=== PATIENT | male | born 1955 | race African-American/Black ===

== ENCOUNTER 2016-12-22 16:13 | Emergency (ER) | payer MEDICARE, OTHER ==
[~2016-12-22] VITALS: Ht 193 cm; Wt 77.1 kg
[~2016-12-22 16:13] MED LIST: ASPI-482 PO; LOSA25TA4 PO; SIMV20TA PO; TRAM50TA PO
[2016-12-22] MEDS ORDERED: IV NORMAL SALINE 1000ML BAG 1,000 ML IV SCH (16:49)
--- NOTE | 2016-12-22 17:13 | RAD ---
PROCEDURE CT head without contrast 12/22/2016. HISTORY Headache for 3 days. TECHNIQUE Noncontrast images were performed. Exposure: One or more of the following individualized dose reduction techniques were utilized for this exam: 1. Automated exposure control. 2. Adjustment of the mA and/or kV according to patient size. 3. Use of iterative reconstruction technique. COMPARISON 06/25/2016. FINDINGS There is no apparent intracranial mass, hemorrhage or abnormal extra-axial fluid collection. No new area of abnormal density is seen in the brain. The ventricles and basilar cisterns are normally positioned. The sinuses and mastoid air cells are clear. IMPRESSION No acute intracranial abnormality or change from the prior study. Electronically signed by: Chemo Duarte (Dec 22, 2016 17:12:53)
[2016-12-22 17:15] VITALS: BP 113/72
--- NOTE | 2016-12-22 17:19 | ED.ADGEN ---
Past Medical History Past Medical History: GERD, High Cholesterol, Hypertension, Hepatitis, Other Additional Past Medical Histor: chronic knee pain, chronic back pain,HEP C Past Surgical History: Other Additional Past Surgical Histo: HERNIA REPAIR, HEAD INJURY UNKNOWN TYPE OR REPAIR Alcohol Use: Occasionally Drug Use: Marijuana Adult General Chief Complaint Chief Complaint: SORE THROAT HPI HPI Patient is a 61 year old male presents emergency department complaining of a four-day history of headache. He states this headache is unlike other studies had in the past. He states that his been refractory to ibuprofen. Patient also states that he has a sore throat. He has had upper respiratory infection type symptoms for the last 1 week. Review of Systems Review of Systems Constitutional: Denies fever or chills. [] Eyes: Denies change in visual acuity. [] HENT: Denies nasal congestion or sore throat. [] Respiratory: Denies cough or shortness of breath. [] Cardiovascular: Denies chest pain or edema. [] GI: Denies abdominal pain, nausea, vomiting, bloody stools or diarrhea. [] : Denies dysuria. [] Musculoskeletal: Denies back pain or joint pain. [] Integument: Denies rash. [] Neurologic: Denies headache, focal weakness or sensory changes. [] Endocrine: Denies polyuria or polydipsia. [] Lymphatic: Denies swollen glands. [] Psychiatric: Denies depression or anxiety. [] Current Medications Current Medications Current Medications Medications (Trade) Dose Ordered Sig/Lavon Start Time Stop Time Status Last Admin Dose Admin Diphenhydramine HCl (Benadryl) 25 mg 1X ONCE 12/22/16 17:30 12/22/16 17:31 DC 12/22/16 17:05 25 MG Ketorolac Tromethamine (Toradol) 15 mg 1X ONCE 12/22/16 17:30 12/22/16 17:31 DC 12/22/16 17:03 15 MG Prochlorperazine Edisylate (Compazine) 10 mg 1X ONCE 12/22/16 17:30 12/22/16 17:31 DC 12/22/16 17:05 10 MG Sodium Chloride (Iv Sodium Chloride 0.9% 1000ml Bag) 1,000 ml @ 1,000 mls/hr Q1H 12/22/16 16:49 12/22/16 17:48 12/22/16 16:59 1,000 MLS/HR Allergies Allergies Allergies Coded Allergies Type Severity Reaction Last Updated Verified Fish Containing Products Allergy Intermediate 08/11/14 Yes iodine Allergy Intermediate 08/11/14 Yes Physical Exam Physical Exam Constitutional: Well developed, well nourished, no acute distress, non-toxic appearance. [] HENT: Normocephalic, atraumatic, bilateral external ears normal, oropharynx moist, bilateral tonsils are erythematous but no oral exudates, nose normal. [] Eyes: PERRLA, EOMI, conjunctiva normal, no discharge. [] Neck: Normal range of motion, left posterior tender lymphadenopathy, supple, no stridor. [] Cardiovascular:Heart rate regular rhythm, no murmur [] Lungs & Thorax: Bilateral breath sounds clear to auscultation [] Abdomen: Bowel sounds normal, soft, no tenderness, no masses, no pulsatile masses. [] Skin: Warm, dry, no erythema, no rash. [] Back: No tenderness, no CVA tenderness. [] Extremities: No tenderness, no cyanosis, no clubbing, ROM intact, no edema. [] Neurologic: Alert and oriented X 3, normal motor function, normal sensory function, no focal deficits noted. [] Psychologic: Affect normal, judgement normal, mood normal. [] Current Patient Data Vital Signs Vital Signs Date Time Temp Pulse Resp B/P Pulse Ox O2 Delivery O2 Flow Rate FiO2 12/22/16 17:15 74 20 113/72 99 Room Air 12/22/16 16:20 98.1 98.1 Lab Values Laboratory Tests Test 12/22/16 16:53 Influenza Type A Antigen Negative (NEGATIVE) Influenza Type B Antigen Negative (NEGATIVE) EKG EKG [] Radiology/Procedures Radiology/Procedures PROCEDURE CT head without contrast 12/22/2016. HISTORY Headache for 3 days. TECHNIQUE Noncontrast images were performed. Exposure: One or more of the following individualized dose reduction techniques were utilized for this exam: 1. Automated exposure control. 2. Adjustment of the mA and/or kV according to patient size. 3. Use of iterative reconstruction technique. COMPARISON 06/25/2016. FINDINGS There is no apparent intracranial mass, hemorrhage or abnormal extra-axial fluid collection. No new area of abnormal density is seen in the brain. The ventricles and basilar cisterns are normally positioned. The sinuses and mastoid air cells are clear. IMPRESSION No acute intracranial abnormality or change from the prior study. Electronically signed by: Von Talley (Dec 22, 2016 17:12:53) DICTATED and SIGNED BY: VON TALLEY Jr, MD DATE: 12/22/16 1718 CC: AJ MERA MD; RYANN KEYES MD ~ [] Course & Med Decision Making Course & Med Decision Making Pertinent Labs and Imaging studies reviewed. (See chart for details) Reassuring workup. Patient reports that his headache has completely resolved with some IV fluids, Compazine, and Benadryl. He is ready for discharge. He is being sent home with supportive care as well as follow-up and return precautions. Headache [] Dragon Disclaimer Dragon Disclaimer This electronic medical record was generated, in whole or in part, using a voice recognition dictation system. AJ MERA MD Dec 22, 2016 17:19
[2016-12-22 17:25] LABS: OBC FLU VALID
[2016-12-22] MEDS ORDERED: KETOROLAC 15 MG/ML VIAL. IV ONE (17:30)
[2016-12-22] MEDS ORDERED: DIPHENHYDRAMINE 50 MG/ML VIAL IVP ONE (17:30)
[2016-12-22] MEDS ORDERED: PROCHLORPERAZINE 10 MG/2 ML VIAL. IV ONE (17:30)
== END 2016-12-22 17:45 | disposition home or self-care (01) ==
LOC: ER 16:13
DX: R51 Headache (principal); J02.9 Acute pharyngitis, unspecified; E78.00 Pure hypercholesterolemia, unspecified; I10 Essential (primary) hypertension; K21.9 Gastro-esophageal reflux disease without esophagitis; G89.29 Other chronic pain; F17.210 Nicotine dependence, cigarettes, uncomplicated; Z86.19 Personal history of other infectious and parasitic diseases; Z91.041 Radiographic dye allergy status; Z91.013 Allergy to seafood
CPT/HCPCS: 70450; 87804; 96361; 96374; 96375; 99285; J0780; J1200; J1885; J7030

== ENCOUNTER 2017-06-05 13:34 | Emergency (ER) | payer OTHER ==
[~2017-06-05] VITALS: Ht 190.5 cm; Wt 80.7 kg
[2017-06-05 14:03] VITALS: BP 132/84
[2017-06-05] MEDS ORDERED: CYCL10TA2 PO (14:37)
[2017-06-05] MEDS ORDERED: PRED20TA PO (14:38)
--- NOTE | 2017-06-05 14:38 | PHYS DOC ---
Past Medical History Past Medical History: GERD, High Cholesterol, Hypertension, Hepatitis, Other Additional Past Medical Histor: chronic knee pain, chronic back pain,HEP C Past Surgical History: Other Additional Past Surgical Histo: HERNIA REPAIR, HEAD INJURY UNKNOWN TYPE OR REPAIR Alcohol Use: Occasionally Drug Use: Marijuana Adult General Chief Complaint Chief Complaint: LOWER BACK PAIN OR INJURY [facility] HPI Patient is a 61 year old male presents to the emergency department by himself stating that he has chronic back pain. He states he is having low back pain on the left side today with some radiation down into his right leg. Patient states that this started after he woke up from a nap. He states he did not take anything for pain and discomfort. He does state however she's been taken ibuprofen for the pain and discomfort at home on a daily basis. Patient states that his primary care physician Ana Keyes had been providing him with tramadol for the pain and discomfort. Patient states that he hasn't been taking this for quite some time. Patient states that he had an appointment set up with a specialist however he forgot about the appointment and did not attend. He states that he does have an appointment within the next 2 weeks. Patient denies any recent injury or trauma. Review of Systems Review of Systems Constitutional: Denies fever or chills [] Eyes: Denies change in visual acuity, redness, or eye pain [] HENT: Denies nasal congestion or sore throat [] Respiratory: Denies cough or shortness of breath [] Cardiovascular: No additional information not addressed in HPI [] GI: Denies abdominal pain, nausea, vomiting, bloody stools or diarrhea [] : Denies dysuria or hematuria [] Musculoskeletal: Right lower back pain, denies joint pain Integument: Denies rash or skin lesions [] Neurologic: Denies headache, focal weakness or sensory changes [] Endocrine: Denies polyuria or polydipsia [] Allergies Allergies Allergies Coded Allergies Type Severity Reaction Last Updated Verified Fish Containing Products Allergy Intermediate 08/11/14 Yes iodine Allergy Intermediate 08/11/14 Yes Physical Exam Physical Exam Constitutional: Well developed, well nourished, no acute distress, non-toxic appearance. [] HENT: Normocephalic, atraumatic, bilateral external ears normal, oropharynx moist, no oral exudates, nose normal. [] Eyes: PERRLA, EOMI, conjunctiva normal, no discharge. [] Neck: Normal range of motion, no tenderness, supple, no stridor. [] Cardiovascular:Heart rate regular rhythm, no murmur [] Lungs & Thorax: Bilateral breath sounds clear to auscultation [] Skin: Warm, dry, no erythema, no rash. [] Back: No tenderness thoracic spine, lumbar spine tenderness, no step-offs no deformities and no crepitus noted. Patient did have tenderness on the right lower back around to the right hip along the sciatic area. Peripheral pulses are 2+ cap refill brisk less than 2 seconds. Patient is able to ambulate without difficulty. Extremities: No tenderness, no cyanosis, no clubbing, ROM intact, no edema. [] Neurologic: Alert and oriented X 3, normal motor function, normal sensory function, no focal deficits noted. [] Psychologic: Affect normal, judgement normal, mood normal. [] Current Patient Data Vital Signs Vital Signs Date Time Temp Pulse Resp B/P (MAP) Pulse Ox O2 Delivery O2 Flow Rate FiO2 06/05/17 14:03 98.2 74 16 100 Room Air 98.2 EKG EKG [] Radiology/Procedures Radiology/Procedures [] Course & Med Decision Making Course & Med Decision Making Patient was instructed Flexeril will cause drowsiness do not take any be alert and oriented. Pertinent Labs and Imaging studies reviewed. (See chart for details) Patient is driven himself here to the emergency department and is complaining of chronic back pain. He'll be provided with a Toradol injection. He'll be discharged home with Flexeril and prednisone. Patient was recommended to follow- up with his primary care physician for further pain management work contact the specialist in which his supposed to be seen in 2 weeks. Patient will be discharged home in stable condition signs and symptoms to return back to emergency department as been provided. All [] questions and concerns been answered at the bedside. Patient had requested tramadol however Catrix to patient he has not been on tramadol for over a year. Also spoke with patient in regards to narcotic restrictions on pain medications. Patient stated understanding. Dragon Disclaimer Dragon Disclaimer This electronic medical record was generated, in whole or in part, using a voice recognition dictation system. Departure Departure Impression: Primary Impression: Chronic back pain Disposition: HOME, SELF-CARE Condition: STABLE Referrals: RYANN KEYES MD (PCP) Patient Instructions: Chronic Back Pain Additional Instructions: Activity as tolerated. Ibuprofen may be taken at home 800 mg every 8 hours with food stop taking if he developed upset stomach. Medications as prescribed. Flexeril will cause drowsiness do not take any be alert and oriented. Ice packs to the areas of discomfort on 20 minutes off 20 minutes several times a day. Follow-up through primary care physician or your specialist for further pain management. Return back to emergency prior signs symptoms of become worse. Scripts Prednisone (PREDNISONE) 20 Mg Tablet 40 MG PO DAILY for 7 Days, #14 TAB Prov: CRYS GODOY APRN 06/05/17 Cyclobenzaprine Hcl (CYCLOBENZAPRINE HCL) 10 Mg Tablet 10 MG PO TID, #30 TAB Prov: CRYS GODOY APRN 06/05/17 CRYS GODOY APRN Jun 05, 2017 14:38
[2017-06-05] MEDS ORDERED: KETOROLAC TROMETHAMINE 60 MG/2 ML INJ. IM ONE (14:45)
== END 2017-06-05 14:50 | disposition home or self-care (01) ==
LOC: ER 13:34
DX: M54.5 Low back pain (principal); G89.29 Other chronic pain; K21.9 Gastro-esophageal reflux disease without esophagitis; I10 Essential (primary) hypertension; E78.00 Pure hypercholesterolemia, unspecified; Z86.19 Personal history of other infectious and parasitic diseases; Z91.041 Radiographic dye allergy status; Z91.013 Allergy to seafood
CPT/HCPCS: 96372; 99283; J1885

== ENCOUNTER 2018-03-27 15:31 | Emergency (ER) | payer OTHER | END 2018-03-27 16:10 | disposition home or self-care (01) | LOC: ER 16:10 | DX: K04.7 Periapical abscess without sinus (principal); E78.00 Pure hypercholesterolemia, unspecified; I10 Essential (primary) hypertension; K21.9 Gastro-esophageal reflux disease without esophagitis; G89.29 Other chronic pain; F12.10 Cannabis abuse, uncomplicated; Z91.041 Radiographic dye allergy status; Z91.013 Allergy to seafood | CPT/HCPCS: 99283 ==

== ENCOUNTER 2018-08-02 08:04 | Emergency (ER) | payer MEDICARE, OTHER ==
[~2018-08-02] VITALS: Ht 189.2 cm; Wt 79.8 kg
[~2018-08-02 08:04] MED LIST changes: +AMOX500T PO; +CYCL10TA2 PO; +HYDR-971 PO; -LOSA25TA4 PO; +LOSA25TA5 PO; +PRED20TA PO
[2018-08-02 08:05] VITALS: BP 118/76
[2018-08-02] MEDS ORDERED: MORPHINE SULFATE 4 MG/ML VIAL. IV/SQ PRN (08:30)
[2018-08-02] MEDS ORDERED: MORPHINE SULFATE 4 MG/ML VIAL. ONE (08:35)
[2018-08-02] MEDS ORDERED: ASPIRIN CHEWABLE 81 MG TABLET. PO ONE (08:45)
[2018-08-02] MEDS ORDERED: LIDO:MAALOX 1:1 20 ML SINGLE DOSE. SWSW ONE (08:45)
--- NOTE | 2018-08-02 08:48 | PHYS DOC ---
Past Medical History Past Medical History: Constipation, GERD, High Cholesterol, Hypertension, Hepatitis, Other Additional Past Medical Histor: chronic knee pain, chronic back pain,HEP C Past Surgical History: Other Additional Past Surgical Histo: HERNIA REPAIR, HEAD INJURY UNKNOWN TYPE OR REPAIR Smoking: Cigarettes, 1 Pack Per Day Alcohol Use: Occasionally Drug Use: Marijuana Adult General Chief Complaint Chief Complaint: CHEST PAIN HPI HPI Patient is a pleasant 62-year-old male who presents to the emergency department for evaluation. He states that this morning he was doing laundry, getting ready to go to shinto, when he developed a sudden onset of sharp chest pain, radiating both vertically up his chest, and then across his chest. He states that the sharp pain has subsided and he has remaining some achy chest soreness. He has not had any shortness of breath, and denies any pleuritic pain, dyspnea on exertion, diaphoresis, nausea, vomiting. He has not had any prior cardiac history. Exertion did not seem to worsen his chest discomfort. There are no alleviating factors to his symptoms. He has not had any abdominal pain, or changes in bowel habits. The patient states he has had similar episodes of pain in the past, and was seen in this hospital several years ago, and had a cardiac evaluation which she states was normal. The patient's HEART score is a 2. Review of Systems Review of Systems Constitutional: Denies fever or chills [] Eyes: Denies change in visual acuity, redness, or eye pain [] HENT: Denies nasal congestion or sore throat [] Respiratory: Denies cough or shortness of breath [] Cardiovascular: No additional information not addressed in HPI [] GI: Denies abdominal pain, nausea, vomiting, bloody stools or diarrhea [] : Denies dysuria or hematuria [] Musculoskeletal: Denies back pain or joint pain [] Integument: Denies rash or skin lesions [] Neurologic: Denies headache, focal weakness or sensory changes [] Endocrine: Denies polyuria or polydipsia [] All other systems were reviewed and found to be within normal limits, except as documented in this note. Current Medications Current Medications Current Medications Medications (Trade) Dose Ordered Sig/Lavon Start Time Stop Time Status Last Admin Dose Admin Aspirin (Children'S Aspirin) 324 mg 1X ONCE 08/02/18 08:45 08/02/18 08:46 DC 08/02/18 08:38 324 MG Morphine Sulfate (Morphine Sulfate) 4 mg STK-MED ONCE 08/02/18 08:35 08/02/18 08:36 DC Multi-Ingredient Mouthwash/Gargle (Gi Cocktail) 20 ml 1X ONCE 08/02/18 08:45 08/02/18 08:47 DC 08/02/18 08:56 20 ML Allergies Allergies Allergies Coded Allergies Type Severity Reaction Last Updated Verified Fish Containing Products Allergy Intermediate 08/11/14 Yes iodine Allergy Intermediate 08/11/14 Yes Physical Exam Physical Exam PHYSICAL EXAM: CONSTITUTIONAL: Well developed, well nourished HEAD: normocephalic, atraumatic EENT: PERRL, EOMI. Conjunctivae normal color, sclerae non-icteric; moist mucous membranes. NECK: Supple, non-tender; no meningismus. LUNGS: Lungs CTA, breathing even and unlabored. Normal air movement. HEART: Regular rate and rhythm, no murmur CHEST: No deformity; non-tender ABDOMEN: The abdomen is soft, and non-tender, no masses or bruits. EXTREM: Normal ROM; no deformity, no calf tenderness. Normal pulses palpable in all extremities. There is no pedal edema. SKIN: No rash; no diaphoresis NEURO: Alert; normal speech and cognition; CN's grossly intact; strength grossly intact without focal deficit. BACK: No CVA TTP. Current Patient Data Vital Signs Vital Signs Date Time Temp Pulse Resp B/P (MAP) Pulse Ox O2 Delivery O2 Flow Rate FiO2 08/02/18 08:39 18 08/02/18 08:05 97.8 61 118/76 (90) 100 Room Air 97.8 Lab Values Laboratory Tests Test 08/02/18 08:30 White Blood Count 3.6 x10^3/uL (4.0-11.0) L Red Blood Count 4.36 x10^6/uL (4.30-5.70) Hemoglobin 13.3 g/dL (13.0-17.5) Hematocrit 38.0 % (39.0-53.0) L Mean Corpuscular Volume 87 fL (79-100) Mean Corpuscular Hemoglobin 31 pg (25-35) Mean Corpuscular Hemoglobin Concent 35 g/dL (31-37) Red Cell Distribution Width 15.6 % (11.5-14.5) H Platelet Count 208 x10^3/uL (140-400) Neutrophils (%) (Auto) 49 % (31-73) Lymphocytes (%) (Auto) 41 % (24-48) Monocytes (%) (Auto) 9 % (0-9) Eosinophils (%) (Auto) 1 % (0-3) Basophils (%) (Auto) 1 % (0-3) Neutrophils # (Auto) 1.8 x10^3uL (1.8-7.7) Lymphocytes # (Auto) 1.5 x10^3/uL (1.0-4.8) Monocytes # (Auto) 0.3 x10^3/uL (0.0-1.1) Eosinophils # (Auto) 0.0 x10^3/uL (0.0-0.7) Basophils # (Auto) 0.0 x10^3/uL (0.0-0.2) Sodium Level 143 mmol/L (136-145) Potassium Level 4.5 mmol/L (3.5-5.1) Chloride Level 106 mmol/L (98-107) Carbon Dioxide Level 29 mmol/L (21-32) Anion Gap 8 (6-14) Blood Urea Nitrogen 19 mg/dL (8-26) Creatinine 1.3 mg/dL (0.7-1.3) Estimated GFR (Cockcroft-Gault) 67.7 BUN/Creatinine Ratio 15 (6-20) Glucose Level 87 mg/dL (70-99) Calcium Level 9.2 mg/dL (8.5-10.1) Magnesium Level 1.9 mg/dL (1.8-2.4) Total Bilirubin 0.3 mg/dL (0.2-1.0) Aspartate Amino Transferase (AST) 23 U/L (15-37) Alanine Aminotransferase (ALT) 21 U/L (16-63) Alkaline Phosphatase 56 U/L (46-116) Creatine Kinase 286 U/L (39-308) Creatine Kinase MB (Mass) 2.1 ng/mL (0.0-3.6) Creatine Kinase MB Relative Index 0.7 % (0-4) Troponin I Quantitative < 0.017 ng/mL (0.000-0.055) Total Protein 7.7 g/dL (6.4-8.2) Albumin 3.6 g/dL (3.4-5.0) Albumin/Globulin Ratio 0.9 (1.0-1.7) L Lipase 178 U/L (73-393) Laboratory Tests 08/02/18 08:30 Laboratory Tests 08/02/18 08:30 EKG EKG [Normal sinus rhythm at a rate of 61 bpm normal axis, normal intervals. There are no acute ischemic ST/T changes.] Radiology/Procedures Radiology/Procedures [PROCEDURE: CHEST PA & LATERAL CHEST PA LATERAL History: patient having chest pain, hx of hyperlipidemia, heavy smoker, hx of emphysema. Comparison: Chest radiograph dated 06/25/2016. Findings: The posterior costophrenic angles are excluded from the lateral [id number] due to lung hyperexpansion. Hyperexpanded lung volume. No focal consolidation. Nodular opacities in the bilateral midlung zones likely related to nipple shadows. Unchanged pulmonary vasculature. No pleural effusion or pneumothorax. The cardiomediastinal silhouette is normal. The great vessels of the thorax are normal. No acute osseous abnormality. IMPRESSION: 1. No focal consolidation. 2. Nodular opacities in the bilateral midlung zones likely related to nipple shadows. ] Course & Med Decision Making Course & Med Decision Making Pertinent Labs and Imaging studies reviewed. (See chart for details) [9:35 AM: The patient's condition remained stable. His pain resolved at this time.I had an extensive discussion with the patient about the limitations of ER cardiac evaluation in definitively ruling out acute coronary syndrome. We discussed limitation of the ER evaluation and a singe ED troponin in r/o AMI, and the risks involved in missed diagnosis of acute coronary syndrome including or permanent debility. I recommended overnight observation for further formal cardiac evaluation to rule out acute coronary syndrome. After expressing understanding of the limitations of ER cardiac evaluation, as well as the risks of missed diagnosis, the patient declined further cardiac evaluation at this time. The patient was mentally competent, and given opportunity to ask questions about the diagnosis and recommended plan of care. I stressed the importance of outpatient follow-up, and returning to the emergency department for new or worsening symptoms, or if the patient is agreeable to undergo further cardiac evaluation. ] Dragon Disclaimer Dragon Disclaimer This electronic medical record was generated, in whole or in part, using a voice recognition dictation system. Departure Departure Impression: Primary Impression: Chest pain Disposition: HOME, SELF-CARE Condition: STABLE Referrals: RYANN KEYES MD (PCP) ALEXANDRIA METZGER MD Patient Instructions: Chest Pain (Nonspecific) Additional Instructions: Begin taking 81 mg of aspirin once daily, Until instructed to stop by physician. AJ GAUTHIER MD Aug 02, 2018 08:48
[2018-08-02 08:55] LABS: BASO % 1 % (0-3); EOS % 1 % (0-3); HEMOGLOBIN 13.3 g/dL (13.0-17.5); LYMPH # 1.5 x10^3/uL (1.0-4.8); LYMPH % 41 % (24-48); MEAN CORPUSCULAR HEMOGLOBIN 31 pg (25-35); MEAN CORPUSCULAR HGB CONC 35 g/dL (31-37); MEAN CORPUSCULAR VOLUME 87 fL (79-100); MONO # 0.3 x10^3/uL (0.0-1.1); MONO % 9 % (0-9); NEUT # 1.8 x10^3uL (1.8-7.7); NEUT % 49 % (31-73); PLATELET COUNT 208 x10^3/uL (140-400); RED BLOOD COUNT 4.36 x10^6/uL (4.30-5.70); RED CELL DISTRIBUTION WIDTH 15.6 % (11.5-14.5); WHITE BLOOD COUNT 3.6 x10^3/uL (4.0-11.0)
[2018-08-02 09:00] LABS: CALCIUM 9.2 mg/dL (8.5-10.1); CREATININE 1.3 mg/dL (0.7-1.3); GFR 67.7; POTASSIUM 4.5 mmol/L (3.5-5.1)
[2018-08-02 09:09] LABS: ALBUMIN 3.6 g/dL (3.4-5.0); ALBUMIN/GLOBULIN RATIO 0.9 (1.0-1.7); MAGNESIUM 1.9 mg/dL (1.8-2.4); TOTAL BILIRUBIN 0.3 mg/dL (0.2-1.0); TOTAL PROTEIN 7.7 g/dL (6.4-8.2)
--- NOTE | 2018-08-02 09:10 | RAD ---
CHEST PA LATERAL History: patient having chest pain, hx of hyperlipidemia, heavy smoker, hx of emphysema. Comparison: Chest radiograph dated 06/25/2016. Findings: The posterior costophrenic angles are excluded from the lateral [id number] due to lung hyperexpansion. Hyperexpanded lung volume. No focal consolidation. Nodular opacities in the bilateral midlung zones likely related to nipple shadows. Unchanged pulmonary vasculature. No pleural effusion or pneumothorax. The cardiomediastinal silhouette is normal. The great vessels of the thorax are normal. No acute osseous abnormality. IMPRESSION: 1. No focal consolidation. 2. Nodular opacities in the bilateral midlung zones likely related to nipple shadows. Electronically signed by: Sam Roberto MD (08/02/2018 9:07 AM) [facility]
--- NOTE | 2018-08-02 10:03 | EKG ---
[facility] [address] [place] [address] Test Date: 2018-08-02 Test Time: 08:12:07 Pat Name: DEBRA VANCE Department: Room: Gender: [employer]: LADY : 1955 Requested By: AJ GAUTHIER Order Number: [id number] Reading MD: Narciso Stuart MD Measurements Intervals [place] Rate: 61 P: 68 NM: 206 QRS: 55 QRSD: 80 T: 52 QT: 386 QTc: 394 Interpretive Statements SINUS RHYTHM Electronically Signed On 08-03-2018 12:22:19 CDT by Narciso Stuart MD
== END 2018-08-02 09:58 | disposition home or self-care (01) ==
LOC: ER 08:04
DX: R07.89 Other chest pain (principal); E78.00 Pure hypercholesterolemia, unspecified; K21.9 Gastro-esophageal reflux disease without esophagitis; I10 Essential (primary) hypertension; G89.29 Other chronic pain; Z98.890 Other specified postprocedural states; F17.210 Nicotine dependence, cigarettes, uncomplicated; Z86.19 Personal history of other infectious and parasitic diseases; Z91.041 Radiographic dye allergy status; Z91.013 Allergy to seafood
CPT/HCPCS: 36415; 71046; 80053; 82553; 83690; 83735; 84484; 85025; 93005; 96374; 99285; J2270

== ENCOUNTER 2018-09-25 19:18 | Emergency (ER) | payer MEDICARE, OTHER ==
[~2018-09-25] VITALS: Ht 182.9 cm; Wt 79.8 kg
[~2018-09-25 19:18] MED LIST changes: +HYDR-3164 PO; -HYDR-971 PO; -LOSA25TA5 PO; +LOSA25TA54 PO; +OMEP20CA9 PO; +POLY17PO29 PO; +SENN-80 PO
[2018-09-25] MEDS ORDERED: IV NORMAL SALINE 1000ML BAG 1,000 ML IV ONE (19:30)
[2018-09-25] MEDS ORDERED: PROCHLORPERAZINE 10 MG/2 ML VIAL. IV ONE (19:30)
[2018-09-25 20:00] VITALS: BP 109/67
--- NOTE | 2018-09-25 20:01 | PHYS DOC ---
Past Medical History Past Medical History: Constipation, GERD, High Cholesterol, Hypertension, Hepatitis, Other Additional Past Medical Histor: chronic knee pain, chronic back pain,HEP C Past Surgical History: Other Additional Past Surgical Histo: HERNIA REPAIR, HEAD INJURY UNKNOWN TYPE OR REPAIR Alcohol Use: Occasionally Drug Use: Marijuana Adult General Chief Complaint Chief Complaint: NAUSEA/VOMITING/DIARRHA HPI HPI Patient is a 62 year old male who presents with GI upset. Patient states he accidentally ate some sausage this morning which had been sitting out all night. He suspects that the sausage had become rotten. After eating this, he began to have some abdominal cramping. He subsequently had a couple episodes of nonbloody emesis and some diarrhea over the course the day. Patient states he smoked some marijuana to try to make himself feel better but this did not help. He presents to the ER primarily complaining of nausea. His last episode of emesis was several hours earlier. He had a total of 2 or 3 episodes of diarrhea over the course of the day. No acute pain area no severe abdominal pain. No fever or chills. Patient has no chronic health conditions. Review of Systems Review of Systems Constitutional: Denies fever Eyes: Denies change in visual acuity HENT: Denies nasal congestion Respiratory: Denies cough or shortness of breath Cardiovascular: No additional information not addressed in HPI GI: Denies abdominal pain : Denies dysuria Musculoskeletal: Denies back pain Integument: Denies rash Neurologic: Denies headache All other systems were reviewed and found to be within normal limits, except as documented in this note. Current Medications Current Medications Current Medications Medications (Trade) Dose Ordered Sig/Lavon Start Time Stop Time Status Last Admin Dose Admin Lorazepam (Ativan) 0.5 mg 1X ONCE 09/25/18 20:30 09/25/18 20:31 DC 09/25/18 20:36 0.5 MG Prochlorperazine Edisylate (Compazine) 10 mg 1X ONCE 09/25/18 19:30 09/25/18 19:34 DC 09/25/18 19:40 10 MG Sodium Chloride 1,000 ml @ 1,000 mls/hr 1X ONCE 09/25/18 19:30 09/25/18 20:29 DC 09/25/18 19:40 1,000 MLS/HR Allergies Allergies Allergies Coded Allergies Type Severity Reaction Last Updated Verified Fish Containing Products Allergy Intermediate 08/11/14 Yes iodine Allergy Intermediate 08/11/14 Yes Physical Exam Physical Exam Constitutional: Well developed, well nourished, no acute distress, non-toxic appearance HENT: Normocephalic, atraumatic, bilateral external ears normal, oropharynx moist Eyes: PERRLA, EOMI, conjunctiva normal Neck: Normal range of motion, no tenderness Cardiovascular:Heart rate regular rhythm, no murmur Lungs & Thorax: Bilateral breath sounds clear to auscultation Abdomen: Bowel sounds normal, soft, no tenderness Skin: Warm, dry, no erythema Extremities: No tenderness, no edema Neurologic: Alert and oriented X 3 Psychologic: Affect normal Current Patient Data Vital Signs Vital Signs Date Time Temp Pulse Resp B/P (MAP) Pulse Ox O2 Delivery O2 Flow Rate FiO2 09/25/18 19:20 97.6 71 18 123/58 (79) 100 Room Air 97.6 EKG EKG [] Radiology/Procedures Radiology/Procedures [] Course & Med Decision Making Course & Med Decision Making Pertinent Labs and Imaging studies reviewed. (See chart for details) Patient is evaluated immediately on arrival. No acute distress. Abdominal exam is completely benign. Plan is to give medication for nausea and IV hydration. 20:42: Patient currently feeling much improved although he is having a small anxiety reaction to the Compazine. He is requesting discharge home. He was given a small dose of Ativan to help quell this side effect. Patient is advised to drink clear liquids for the next 24 hours and advance diet as tolerated. Return to the ER for any new or worsening symptoms. He is provided a cab voucher to get home safely this evening. Dragon Disclaimer Dragon Disclaimer This electronic medical record was generated, in whole or in part, using a voice recognition dictation system. Departure Departure Disposition: 01 HOME, SELF-CARE Condition: IMPROVED Referrals: RYANN KEYES MD (PCP) Scripts Ondansetron Hcl (ZOFRAN) 4 Mg Tablet 4 MG PO PRN TID PRN for NAUSEA, #15 nausea/vomiting Prov: ORESTES JENSEN DO 09/25/18 ORESTES JENSEN DO Sep 25, 2018 20:01
[2018-09-25] MEDS ORDERED: ONDA4TAB7 PO (20:35)
== END 2018-09-25 20:45 | disposition home or self-care (01) ==
LOC: ER 19:18
DX: R11.2 Nausea with vomiting, unspecified (principal); R10.9 Unspecified abdominal pain; R19.7 Diarrhea, unspecified; E78.00 Pure hypercholesterolemia, unspecified; K21.9 Gastro-esophageal reflux disease without esophagitis; I10 Essential (primary) hypertension; G89.29 Other chronic pain; F41.9 Anxiety disorder, unspecified; Z98.890 Other specified postprocedural states; F12.10 Cannabis abuse, uncomplicated; Z91.041 Radiographic dye allergy status; Z91.013 Allergy to seafood
CPT/HCPCS: 96361; 96374; 96375; 99283; J0780; J2060; J7030

== ENCOUNTER 2018-10-21 11:49 | Emergency (ER) | payer MEDICARE, OTHER ==
[~2018-10-21] VITALS: Ht 190.5 cm; Wt 79.4 kg
[~2018-10-21 11:49] MED LIST changes: +OMEP20CA10 PO; -OMEP20CA9 PO; +ONDA4TAB7 PO
[2018-10-21] MEDS ORDERED: LORazepam 0.5 MG TABLET PO ONE (14:00)
[2018-10-21 16:01] VITALS: BP 113/79
[2018-10-21] MEDS ORDERED: LORA0.5T PO (16:21)
--- NOTE | 2018-10-21 16:22 | PHYS DOC ---
Past Medical History Past Medical History: Constipation, GERD, High Cholesterol, Hypertension, Hepatitis, Other Additional Past Medical Histor: chronic knee pain, chronic back pain,HEP C Past Surgical History: Other Additional Past Surgical Histo: HERNIA REPAIR, HEAD INJURY UNKNOWN TYPE OR REPAIR Alcohol Use: Rarely Drug Use: Marijuana Adult General Chief Complaint Chief Complaint: ANXIETY/PANIC ATTACK HPI HPI Patient is a 62 year old AA male, accompanied by his mother, with complaints of frequent panic attacks for the last month. Pt states he has felt anxious, shaky, jittery, and at times has even found himself crying for no reason. He reports that he was seen at [facility] in September and was admitted to [facility] for 3 days. He was prescribed seroquel and celexa but he stopped taking them because they were not helping and made him feel drowsy. Pt states he used to smoke marijuana but has even stopped smoking thinking that the marijuana was causing his symptoms. He reports several stressors in his life at this time including the loss of his brother 3 years ago, loss of his only friendship 5-6 months ago, and financial hardships including repossession of his vehicle. Pt denies any suicidal ideations, plans, or attempts. He reports that his anxiety level has been so bad that he has not slept in over 48 hours. Review of Systems Review of Systems Constitutional: Denies fever or chills [] Eyes: Denies change in visual acuity, redness, or eye pain [] HENT: Denies nasal congestion or sore throat [] Respiratory: Denies cough or shortness of breath [] Cardiovascular: Denies chest pain or palpitations GI: Denies abdominal pain, nausea, vomiting, or diarrhea [] Musculoskeletal: Denies back pain or joint pain [] Integument: Denies rash or skin lesions [] Neurologic: Denies headache, focal weakness or sensory changes [] Psychiatric: See HPI Complete systems were reviewed and found to be within normal limits, except as documented in this note. Current Medications Current Medications Current Medications Medications (Trade) Dose Ordered Sig/Lavon Start Time Stop Time Status Last Admin Dose Admin Lorazepam (Ativan) 0.5 mg 1X ONCE 10/21/18 14:00 10/21/18 14:01 DC 10/21/18 13:51 0.5 MG Allergies Allergies Allergies Coded Allergies Type Severity Reaction Last Updated Verified Fish Containing Products Allergy Intermediate 08/11/14 Yes iodine Allergy Intermediate 08/11/14 Yes Physical Exam Physical Exam Constitutional: Well developed, well nourished, anxious, mild distress, non- toxic appearance. [] HENT: Normocephalic, atraumatic, bilateral external ears normal, oropharynx moist, no oral exudates, nose normal. [] Eyes: PERRLA, conjunctiva normal, no discharge. [] Neck: Normal range of motion, no tenderness, supple, no stridor. [] Cardiovascular:Heart rate regular rhythm, no murmur [] Lungs & Thorax: Bilateral breath sounds clear to auscultation [] Skin: Warm, dry, no erythema, no rash. [] Extremities: No cyanosis, no clubbing, ROM intact, no edema. [] Neurologic: Alert and oriented X 3, normal motor function, normal sensory function, no focal deficits noted. [] Psychologic: Affect normal, judgement normal, mood anxious Current Patient Data Vital Signs Vital Signs Date Time Temp Pulse Resp B/P (MAP) Pulse Ox O2 Delivery O2 Flow Rate FiO2 10/21/18 16:01 60 14 113/79 (90) 99 Room Air 10/21/18 12:55 99.0 99.0 EKG EKG [] Radiology/Procedures Radiology/Procedures [] Course & Med Decision Making Course & Med Decision Making Pertinent Labs and Imaging studies reviewed. (See chart for details) Patient was given 1 tablet of 0.5 mg ativan in the ER, reports feeling better and relaxed after medication. A prescription for xanax 0.5 mg tablets #20 was written and patient was advised that he needs to follow up with his PCP or a psychiatrist for further treatment and evaluation of anxiety symptoms. Patient verbalized an understanding of home care, medications, follow-up, and return to ED instructions and was in agreement with the plan of care. [] Dragon Disclaimer Dragon Disclaimer This electronic medical record was generated, in whole or in part, using a voice recognition dictation system. Departure Departure Impression: Primary Impression: Anxiety Disposition: 01 HOME, SELF-CARE Condition: IMPROVED Referrals: RYANN KEYES MD (PCP) Patient Instructions: Anxiety and Panic Attacks, [id number] Additional Instructions: Fill the prescription and use as directed. Follow up with a psychiatrist for further evaluation and treatment of your anxiety. Return to the ER if your symptoms worsen or you develop suicidal thoughts. Scripts Lorazepam (LORAZEPAM) 0.5 Mg Tablet 0.5 MG PO BID PRN for ANXIETY / AGITATION for 10 Days, #20 TAB 0 Refills Prov: VICTOR HUGO ROSALES APRN 10/21/18 VICTOR HUGO ROSALES APRN Oct 21, 2018 16:22
== END 2018-10-21 16:35 | disposition home or self-care (01) ==
LOC: ER 11:49
DX: F41.9 Anxiety disorder, unspecified (principal); R25.1 Tremor, unspecified; K21.9 Gastro-esophageal reflux disease without esophagitis; I10 Essential (primary) hypertension; E78.00 Pure hypercholesterolemia, unspecified; G89.29 Other chronic pain; Z91.013 Allergy to seafood; Z91.041 Radiographic dye allergy status
CPT/HCPCS: 99284

== ENCOUNTER 2019-01-11 19:42 | Emergency (ER) | payer MEDICARE, OTHER ==
[~2019-01-11] VITALS: Ht 190.5 cm; Wt 81.6 kg
[2019-01-11 19:42] VITALS: BP 96/54
[~2019-01-11 19:42] MED LIST changes: +LORA0.5T PO
--- NOTE | 2019-01-11 20:56 | PHYS DOC ---
Past Medical History Past Medical History: Constipation, GERD, High Cholesterol, Hypertension, Hepatitis, Other Additional Past Medical Histor: chronic knee pain, chronic back pain,HEP C Past Surgical History: Other Additional Past Surgical Histo: HERNIA REPAIR, HEAD INJURY UNKNOWN TYPE OR REPAIR Alcohol Use: Rarely Drug Use: Marijuana Adult General Chief Complaint Chief Complaint: LACERATION/AVULSION HPI HPI Patient is a 63 year old male who presents with laceration to right great toe and third toe. Patient states he was going to answer his door andrews when he cut his foot on a ceramic sword. Denies any numbness or tingling in his feet. Patient denied any weakness in his feet. Is experiencing some right foot pain with no aggravating or alleviating factors.[] Review of Systems Review of Systems Constitutional: Denies fever or chills [] Eyes: Denies redness, or eye pain [] HENT: Denies nasal congestion or sore throat [] Respiratory: Denies cough or shortness of breath [] Cardiovascular: Denies chest pain or palpitations[] GI: Denies abdominal pain, nausea, vomiting, bloody stools or diarrhea [] : Denies dysuria or hematuria [] Musculoskeletal: Denies back pain or joint pain [] Integument: Denies rash or skin lesions [] Neurologic: Denies headache, focal weakness[] Complete systems were reviewed and found to be within normal limits, except as documented in this note. Allergies Allergies Allergies Coded Allergies Type Severity Reaction Last Updated Verified Fish Containing Products Allergy Intermediate 08/11/14 Yes iodine Allergy Intermediate 08/11/14 Yes Physical Exam Physical Exam Constitutional: No acute distress, non-toxic appearance. [] HENT: Normocephalic, atraumatic. [] Eyes: PERRLA, no discharge. [] Neck: Normal range of motion, no tenderness. [] Cardiovascular: Heart rate regular rhythm, no murmur [] Lungs & Thorax: Bilateral breath sounds clear to auscultation [] Abdomen: Bowel sounds normal, soft, no tenderness. [] Skin: 2 lacerations to right foot, warm, dry, no erythema, no rash. [] Back: No tenderness, no CVA tenderness. [] Extremities: Laceration to right big toe, laceration to the dorsal aspect of right third toe[] Neurologic: Alert and oriented X 3, no focal deficits noted. [] Psychologic: Affect normal, mood normal. [] Current Patient Data Vital Signs Vital Signs Date Time Temp Pulse Resp B/P (MAP) Pulse Ox O2 Delivery O2 Flow Rate FiO2 01/11/19 19:42 97.9 77 20 96/54 (68) 99 Room Air 97.9 EKG EKG [] Radiology/Procedures Radiology/Procedures [] Course & Med Decision Making Course & Med Decision Making 63-year-old male presents emergency Department due to two lacerations on his right foot. He had full range of motion and strength of his right foot. Wound was washed out and glued using Dermabond. Wound care instructions provided to patient. Patient stable for discharge with outpatient follow-up with PCP. Discussed findings and plan with patient and family, who acknowledge understanding and agreement.(See chart for details) [] Dragon Disclaimer Dragon Disclaimer This electronic medical record was generated, in whole or in part, using a voice recognition dictation system. Laceration/Wound Repair Laceration/Wound Repair : Wound Location: lower extremity (right great toe and third toe) Wound's Depth, Shape: superficial Wound Length (cm): 2 Wound Explored: clean Irrigated w/ Saline (ccs): 100 Betadine Prep?: No (ChloraPrep) Wound Debrided: minimal Wound Repaired With: Dermabond Layer Closure?: No Sterile Dressing Applied?: No Splint Applied?: No Sling Applied?: No Departure Departure Impression: Primary Impression: Toe laceration Disposition: 01 HOME, SELF-CARE Condition: STABLE Referrals: RYANN KEYES MD (PCP) Patient Instructions: Laceration Care, Adult, [id number] Additional Instructions: Do not soak your wound. You may shower. The skin glue will dissolve on its own. DO NOT USE ANTIBIOTIC OINTMENT IT WILL REDUCE THE STRENGTH OF THE GLUE. Problem Qualifiers Primary Impression: Toe laceration Encounter type: initial encounter Toe: unspecified toe Damage to nail status: without damage Foreign body presence: without foreign body Laterality: left Qualified Codes: S91.119A - Laceration without foreign body of unspecified toe without damage to nail, initial encounter BECKY GRAHAM DO Jan 11, 2019 20:56
== END 2019-01-11 21:03 | disposition home or self-care (01) ==
LOC: ER 19:42
DX: S91.111A Laceration without foreign body of right great toe without damage to nail, initial encounter (principal); K21.9 Gastro-esophageal reflux disease without esophagitis; I10 Essential (primary) hypertension; E78.00 Pure hypercholesterolemia, unspecified; G89.29 Other chronic pain; M25.569 Pain in unspecified knee; M54.89 Other dorsalgia; Z88.8 Allergy status to other drugs, medicaments and biological substances; Z91.013 Allergy to seafood; W26.8XXA Contact with other sharp object(s), not elsewhere classified, initial encounter; Y93.89 Activity, other specified; Y92.89 Other specified places as the place of occurrence of the external cause; Y99.8 Other external cause status
CPT/HCPCS: 12001; 99283

== ENCOUNTER 2019-03-06 12:47 | Emergency (ER) | payer MEDICARE, OTHER ==
[~2019-03-06] VITALS: Ht 190.5 cm; Wt 78.0 kg
[2019-03-06] MEDS ORDERED: LORazepam 0.5 MG TABLET PO ONE (13:15)
--- NOTE | 2019-03-06 13:50 | PHYS DOC ---
Past Medical History Past Medical History: Constipation, GERD, High Cholesterol, Hypertension, Hepatitis, Other Additional Past Medical Histor: chronic knee pain, chronic back pain,HEP C Past Surgical History: Other Additional Past Surgical Histo: HERNIA REPAIR, HEAD INJURY UNKNOWN TYPE OR REPAIR Alcohol Use: Rarely Drug Use: Marijuana Adult General Chief Complaint Chief Complaint: CHEST PAIN HPI HPI Patient is a 63 year old AA male presents with left-sided chest pain starting several hours prior to ED arrival. Patient states pain woke him from sleep at 4:30. Patient states he fell anxious, take his anxiety medication began to pace. He became tired fell asleep and awoke this morning without chest pain or feeling anxious. Patient then states an unexpected guest arrived and his chest pain returned. Chest pain is described as sharp, nonradiating, it is not associated with nausea vomiting or sweats. No abdominal pain. Pain is not worse with exertion. Denies history of CAD, hypertension diabetes. Reports dyslipidemia. No family history of coronary disease. Patient smokes cigarettes and last smoked marijuana 3 days ago. Denies. [] Review of Systems Review of Systems Review symptoms as per history of present illness. All other review symptoms are negative. All other systems were reviewed and found to be within normal limits, except as documented in this note. Current Medications Current Medications Current Medications Medications (Trade) Dose Ordered Sig/Lavon Start Time Stop Time Status Last Admin Dose Admin Lorazepam (Ativan) 2 mg 1X ONCE 03/06/19 13:15 03/06/19 13:16 DC 03/06/19 13:29 2 MG Allergies Allergies Allergies Coded Allergies Type Severity Reaction Last Updated Verified Fish Containing Products Allergy Intermediate 08/11/14 Yes iodine Allergy Intermediate 08/11/14 Yes Physical Exam Physical Exam Constitutional: Well developed, anxious, jaw clenched while talking. [] HENT: Normocephalic, atraumatic, bilateral external ears normal, oropharynx moist, nose normal. [] Eyes: PERRLA, EOMI, conjunctiva normal. [] Neck: Normal range of motion, no tenderness, supple, no stridor. [] Cardiovascular:Heart rate regular rhythm, no murmur, neg Homans signs. [] Lungs & Thorax: Bilateral breath sounds clear to auscultation. [] Abdomen: Bowel sounds normal, soft, no tenderness [] Skin: Warm, dry, no erythema, no rash. [] Back: No tenderness, no CVA tenderness. [] Extremities: No tenderness, no cyanosis, no clubbing, ROM intact, no edema. [] Neurologic: Alert and oriented X 3, normal motor function, normal sensory function, no focal deficits noted. [] Psychologic: Affect normal, judgement normal, mood normal. [] Current Patient Data Vital Signs Vital Signs Date Time Temp Pulse Resp B/P (MAP) Pulse Ox O2 Delivery O2 Flow Rate FiO2 03/06/19 13:09 98.6 70 16 120/77 (91) 99 Room Air 98.6 Lab Values Laboratory Tests Test 03/06/19 13:41 White Blood Count 3.5 x10^3/uL (4.0-11.0) L Red Blood Count 4.63 x10^6/uL (4.30-5.70) Hemoglobin 13.8 g/dL (13.0-17.5) Hematocrit 40.5 % (39.0-53.0) Mean Corpuscular Volume 87 fL (79-100) Mean Corpuscular Hemoglobin 30 pg (25-35) Mean Corpuscular Hemoglobin Concent 34 g/dL (31-37) Red Cell Distribution Width 15.3 % (11.5-14.5) H Platelet Count 218 x10^3/uL (140-400) Neutrophils (%) (Auto) 50 % (31-73) Lymphocytes (%) (Auto) 41 % (24-48) Monocytes (%) (Auto) 9 % (0-9) Eosinophils (%) (Auto) 1 % (0-3) Basophils (%) (Auto) 0 % (0-3) Neutrophils # (Auto) 1.7 x10^3uL (1.8-7.7) L Lymphocytes # (Auto) 1.4 x10^3/uL (1.0-4.8) Monocytes # (Auto) 0.3 x10^3/uL (0.0-1.1) Eosinophils # (Auto) 0.0 x10^3/uL (0.0-0.7) Basophils # (Auto) 0.0 x10^3/uL (0.0-0.2) Sodium Level 143 mmol/L (136-145) Potassium Level 4.5 mmol/L (3.5-5.1) Chloride Level 107 mmol/L (98-107) Carbon Dioxide Level 27 mmol/L (21-32) Anion Gap 9 (6-14) Blood Urea Nitrogen 19 mg/dL (8-26) Creatinine 1.2 mg/dL (0.7-1.3) Estimated GFR (Cockcroft-Gault) 74.0 BUN/Creatinine Ratio 16 (6-20) Glucose Level 89 mg/dL (70-99) Calcium Level 9.3 mg/dL (8.5-10.1) Total Bilirubin 0.5 mg/dL (0.2-1.0) Aspartate Amino Transferase (AST) 23 U/L (15-37) Alanine Aminotransferase (ALT) 21 U/L (16-63) Alkaline Phosphatase 52 U/L (46-116) Troponin I Quantitative < 0.017 ng/mL (0.000-0.055) Total Protein 7.2 g/dL (6.4-8.2) Albumin 3.9 g/dL (3.4-5.0) Albumin/Globulin Ratio 1.2 (1.0-1.7) Laboratory Tests 03/06/19 13:41 Laboratory Tests 03/06/19 13:41 EKG EKG [EKG: Sinus rhythm, rate 64, no acute ST-T wave changes, QTC 381.] Radiology/Procedures Radiology/Procedures [CXR: NAD] Course & Med Decision Making Course & Med Decision Making Pertinent Labs and Imaging studies reviewed. (See chart for details) [Atypical chest pain, resolved in the ED with Ativan. EKG, lab and imaging studies reviewed. I offered to evaluate for possible underlying heart disease. Patient declined hospital admission. He states that he knows it is the best option but he needs to get to the bottom up causing his chest pain and rule out coronary disease but prefers to follow-up with his PCP. He agrees to return should his symptoms return. In the meantime, recommend daily aspirin and Ativan.] Dragon Disclaimer Dragon Disclaimer This electronic medical record was generated, in whole or in part, using a voice recognition dictation system. Departure Departure Impression: Primary Impression: Chest pain Additional Impression: Anxiety Disposition: 01 HOME, SELF-CARE Condition: GOOD Referrals: RYANN KEYES MD (PCP) Patient Instructions: Chest Pain (Nonspecific), [id number] Additional Instructions: Please take 2 daily baby aspirin and Ativan as directed. Follow-up with local primary care physician and to 3 days for reevaluation and cardiology referral for outpatient stress test. In the meantime if you change your mind regarding hospital admission or if your symptoms recur, return to the emergency department. Scripts Lorazepam (ATIVAN) 1 Mg Tablet 1 MG PO BID, #5 TAB Prov: TREMAINE MEYER DO 03/06/19 Problem Qualifiers TREMAINE MEYER DO March 06, 2019 13:50
[2019-03-06 13:52] LABS: BASO % 0 % (0-3); EOS % 1 % (0-3); HEMATOCRIT 40.5 % (39.0-53.0); HEMOGLOBIN 13.8 g/dL (13.0-17.5); LYMPH # 1.4 x10^3/uL (1.0-4.8); LYMPH % 41 % (24-48); MEAN CORPUSCULAR HEMOGLOBIN 30 pg (25-35); MEAN CORPUSCULAR HGB CONC 34 g/dL (31-37); MEAN CORPUSCULAR VOLUME 87 fL (79-100); MONO # 0.3 x10^3/uL (0.0-1.1); MONO % 9 % (0-9); NEUT # 1.7 x10^3uL (1.8-7.7); NEUT % 50 % (31-73); PLATELET COUNT 218 x10^3/uL (140-400); RED BLOOD COUNT 4.63 x10^6/uL (4.30-5.70); RED CELL DISTRIBUTION WIDTH 15.3 % (11.5-14.5); WHITE BLOOD COUNT 3.5 x10^3/uL (4.0-11.0)
[2019-03-06 13:58] LABS: CALCIUM 9.3 mg/dL (8.5-10.1); CREATININE 1.2 mg/dL (0.7-1.3); POTASSIUM 4.5 mmol/L (3.5-5.1)
[2019-03-06 14:00] VITALS: BP 118/72
[2019-03-06 14:03] LABS: ALBUMIN 3.9 g/dL (3.4-5.0); ALBUMIN/GLOBULIN RATIO 1.2 (1.0-1.7); TOTAL BILIRUBIN 0.5 mg/dL (0.2-1.0); TOTAL PROTEIN 7.2 g/dL (6.4-8.2)
--- NOTE | 2019-03-06 14:03 | RAD ---
CHEST AP ONLY Clinical indications: Chest pain. COMPARISON: September 08, 2018. Findings: No acute lung infiltrate or pleural effusion or pulmonary edema or lung mass or pneumothorax is seen. The heart size, pulmonary vasculature, mediastinum and both evans are unremarkable. Impression: No acute radiographic abnormality is seen. Electronically signed by: Hector Cabral MD (03/06/2019 2:00 PM) [facility]
[2019-03-06] MEDS ORDERED: LORA-434 PO (14:14)
--- NOTE | 2019-03-07 14:46 | EKG ---
[facility] [address] [place] [address] Test Date: 2019-03-06 Test Time: 12:54:49 Pat Name: DEBRA VANCE Department: Room: Gender: M Assembler Motor Vehicle: : [id number] Requested By: TREMAINE MEYER Order Number: [id number] Reading MD: Measurements Intervals [place] Rate: 64 P: 64 GA: 202 QRS: 22 QRSD: 78 T: 47 QT: 366 QTc: 381 Interpretive Statements SINUS RHYTHM NORMAL ECG No previous ECG available for comparison
== END 2019-03-06 14:51 | disposition home or self-care (01) ==
LOC: ER 12:47
DX: R07.89 Other chest pain (principal); F41.9 Anxiety disorder, unspecified; E78.5 Hyperlipidemia, unspecified; K21.9 Gastro-esophageal reflux disease without esophagitis; E78.00 Pure hypercholesterolemia, unspecified; I10 Essential (primary) hypertension; G89.29 Other chronic pain; Z98.890 Other specified postprocedural states; Z91.041 Radiographic dye allergy status; Z91.013 Allergy to seafood
CPT/HCPCS: 36415; 71045; 80053; 84484; 85025; 93005; 99285-25

== ENCOUNTER 2019-03-13 16:29 | Emergency (ER) | payer MEDICARE, OTHER ==
[~2019-03-13] VITALS: Ht 188 cm; Wt 78.0 kg
[~2019-03-13 16:29] MED LIST changes: +LORA-434 PO
[2019-03-13 16:58] VITALS: BP 116/59
--- NOTE | 2019-03-13 17:12 | PHYS DOC ---
Past Medical History Past Medical History: Constipation, GERD, High Cholesterol, Hypertension, Hepatitis, Other Additional Past Medical Histor: chronic knee pain, chronic back pain,HEP C Past Surgical History: Other Additional Past Surgical Histo: HERNIA REPAIR, HEAD INJURY UNKNOWN TYPE OR REPAIR Alcohol Use: Rarely Drug Use: Marijuana Adult General Chief Complaint Chief Complaint: EARACHE/EAR PAIN [facility] HPI Patient is a 63 year old -Martiniquais male who presents with left ear cerumen impaction adn continued left ear pain. Patient reports that it's difficult to hear out of left ear. He seen in the emergency department 2 days ago for the same and prescribed antibiotics instructed follow-up with his PCP. He is not treated to cerumen impaction. No tinnitus, vertigo, neck pain. No diarrhea. No other acute symptoms or complaints.[] Review of Systems Review of Systems ROS as per HPI All other systems were reviewed and found to be within normal limits, except as documented in this note. Allergies Allergies Allergies Coded Allergies Type Severity Reaction Last Updated Verified Fish Containing Products Allergy Intermediate 08/11/14 Yes iodine Allergy Intermediate 08/11/14 Yes Physical Exam Physical Exam Constitutional: Well developed, well nourished, no acute distress, non-toxic appearance. [] HENT: Normocephalic, atraumatic, bilateral external ears normal, left external auditory canal cerumen impaction, oropharynx moist, no oral exudates, nose normal. [] Eyes: PERRLA, EOMI, conjunctiva normal, no discharge. [] Neck: Normal range of motion, no tenderness, supple, no stridor. [] Cardiovascular:Heart rate regular rhythm, no murmur [] Neurologic: Alert and oriented X 3, normal motor function, normal sensory function, no focal deficits noted. [] Psychologic: Affect normal, judgement normal, mood normal. [] Current Patient Data Vital Signs Vital Signs Date Time Temp Pulse Resp B/P (MAP) Pulse Ox O2 Delivery O2 Flow Rate FiO2 03/13/19 16:58 98.7 78 20 116/59 (78) 97 Room Air 98.7 EKG EKG [] Radiology/Procedures Radiology/Procedures [] Course & Med Decision Making Course & Med Decision Making Pertinent Labs and Imaging studies reviewed. (See chart for details) [Supportive care instructions provided.] Dragon Disclaimer Dragon Disclaimer This electronic medical record was generated, in whole or in part, using a voice recognition dictation system. Departure Departure Impression: Primary Impression: Impacted cerumen of left ear Disposition: 01 HOME, SELF-CARE Patient Instructions: Cerumen Impaction Additional Instructions: Apply a mixture of warm water and peroxide to your left ear nightly for the next several days. Continue current antibiotics. Follow up with your PCP for re- evaluation. TREMAINE MEYER DO Mar 13, 2019 17:12
== END 2019-03-13 17:19 | disposition home or self-care (01) ==
LOC: ER 16:29
DX: H61.22 Impacted cerumen, left ear (principal); K21.9 Gastro-esophageal reflux disease without esophagitis; E78.00 Pure hypercholesterolemia, unspecified; I10 Essential (primary) hypertension; Z91.041 Radiographic dye allergy status; G89.29 Other chronic pain; Z91.013 Allergy to seafood
CPT/HCPCS: 69209; 99281; 99282

== ENCOUNTER 2019-12-02 19:59 | Emergency (ER) | payer MEDICARE, MEDICAID ==
[~2019-12-02] VITALS: Ht 190.5 cm; Wt 82.7 kg
[~2019-12-02 19:59] MED LIST changes: -OMEP20CA10 PO; +OMEP20CA16 PO
[2019-12-02 21:17] VITALS: BP 132/86
[2019-12-02] MEDS ORDERED: IPRATRPIUM/ALBUTEROL 0.5/2.5MG 3 ML NEBU. NEB ONE (22:30)
[2019-12-02] MEDS ORDERED: ALBUTEROL SULFATE 2.5 MG/3 ML NEBU. NEB ONE (22:30)
--- NOTE | 2019-12-02 23:03 | RAD ---
CHEST PA LATERAL INDICATION: Cough. COMPARISON STUDY: 01/04/2019, 09/08/2018. FINDINGS: Lungs: Normal lung volume. No pulmonary mass or consolidation. The tracheobronchial tree and hilar structures are normal. Pleura: No pleural effusion or pneumothorax. Heart and Mediastinum: The cardiomediastinal silhouette is normal. The great vessels of the thorax are normal. Bones and Soft Tissues: Degenerative changes of the spine. IMPRESSION: No acute cardiopulmonary process. Electronically signed by: Denys Cain MD (12/02/2019 11:00 PM) [id number]
--- NOTE | 2019-12-02 23:51 | PHYS DOC ---
Past Medical History Past Medical History: Anxiety, Asthma, Bronchitis, COPD Additional Past Medical Histor: chronic knee pain, chronic back pain,HEP C (VICTOR HUGO ROSALES APRN) Past Surgical History: No Surgical History Additional Past Surgical Histo: HERNIA REPAIR, HEAD INJURY UNKNOWN TYPE OR REPAIR (VICTOR HUGO ROSALES APRN) Smoking Status: Current Every Day Smoker Alcohol Use: None Drug Use: Marijuana (VICTOR HUGO ROSALES APRN) Attending Signature I have participated in the care of this patient and I have reviewed and agree with all pertinent clinical information above including history, exam, and recommendations. (ISABEL CABELLO MD) Adult General Chief Complaint Chief Complaint: FLU SYMPTOM HPI HPI Patient is a 64 year old AA male who presents to the emergency department with complaints of continued cough, nasal congestion, and intermittent fevers. He states he was seen by his primary care doctor 3 days ago and was told to stop taking prednisone and continue taking these in the next, Singulair, and Zyrtec. Patient states he was seen at about a month ago where he was prescribed a Z- Niko and diagnosed with bronchitis. He states that he finished that antibiotic as prescribed and was feeling better but then his symptoms returned. Patient states he has been battling these symptoms ever since moving into his new apartment l january. He denies any chest pain, shortness of breath, wheezing, palpitations, nausea, vomiting, diarrhea, abdominal pain, back pain, syncope, or dizziness. He states he has a persistent cough and nasal congestion whenever he goes home. He reports that his chest hurts when he coughs he currently denies any pain but states that he coughs his pain goes to 4 out of 10 on the pain s milena. He denies any alleviating factors. (VICTOR HUGO ROSALES APRN) Review of Systems Review of Systems All other systems were reviewed and found to be within normal limits, except as documented in this note. (VICTOR HUGO ROSALES APRN) Current Medications Current Medications Current Medications Medications (Trade) Dose Ordered Sig/Lavon Start Time Stop Time Status Last Admin Dose Admin Albuterol Sulfate (Ventolin Neb Soln) 2.5 mg 1X ONCE 12/02/19 22:30 12/02/19 22:31 DC Albuterol/ Ipratropium (Duoneb) 3 ml 1X ONCE 12/02/19 22:30 12/02/19 22:31 DC (ISABEL CABELLO MD) Allergies Allergies Allergies Coded Allergies Type Severity Reaction Last Updated Verified Fish Containing Products Allergy Intermediate 08/11/14 Yes iodine Allergy Intermediate 08/11/14 Yes (ISABEL CABELLO MD) Physical Exam Physical Exam Constitutional: Well developed, well nourished, no acute distress, non-toxic appearance. [] HENT: Normocephalic, atraumatic, bilateral external ears normal, oropharynx moist, no oral exudates, nose normal. [] Eyes: PERRLA, EOMI, conjunctiva normal, no discharge. [] Neck: Normal range of motion, no stridor. [] Cardiovascular:Heart rate regular rhythm, no murmur [] Lungs & Thorax: Bilateral breath sounds clear to auscultation in upper lobes bilaterally, rhonchi in bilateral bases, no wheezing, no retractions, speaking full sentences, unlabored [] Skin: Warm, dry, no erythema, no rash. [] Back: No tenderness, Extremities: No cyanosis, ROM intact, no edema. [] Neurologic: Alert and oriented X 3, no focal deficits noted. [] Psychologic: Affect normal, judgement normal, mood normal. [] (VICTOR HUGO ROSALES APRN) Current Patient Data Vital Signs Vital Signs Date Time Temp Pulse Resp B/P (MAP) Pulse Ox O2 Delivery O2 Flow Rate FiO2 12/02/19 21:17 98.3 66 18 132/86 (101) 100 Room Air 98.3 (ISABEL CABELLO MD) EKG EKG [] (VICTOR HUGO ROSALES APRN) Radiology/Procedures Radiology/Procedures PROCEDURE: CHEST PA & LATERAL CHEST PA LATERAL INDICATION: Cough. COMPARISON STUDY: 01/04/2019, 09/08/2018. FINDINGS: Lungs: Normal lung volume. No pulmonary mass or consolidation. The tracheobronchial tree and hilar structures are normal. Pleura: No pleural effusion or pneumothorax. Heart and Mediastinum: The cardiomediastinal silhouette is normal. The great vessels of the thorax are normal. Bones and Soft Tissues: Degenerative changes of the spine. IMPRESSION: No acute cardiopulmonary process. [] (VICTOR HUGO ROSALES APRN) Course & Med Decision Making Course & Med Decision Making Pertinent Labs and Imaging studies reviewed. (See chart for details) 2310- advised patient of abnormal chest x-ray findings. Patient states he still has not received his breathing treatment. We'll reassess patient after the breathing treatment. 2320- Pt states he can not wait for a breathing treatment because his ride is here and signed out AMA [] (VICTOR HUGO ROSALES APRN) Dragon Disclaimer Dragon Disclaimer This electronic medical record was generated, in whole or in part, using a voice recognition dictation system. (VICTOR HUGO ROSALES APRN) Departure Departure Impression: Primary Impression: Left against medical advice Disposition: 07 AGAINST MEDICAL ADVICE Condition: STABLE Referrals: RYANN KEYES MD (PCP) VICTOR HUGO ROSALES APRN Dec 02, 2019 23:51 ISABEL CABELLO MD Dec 03, 2019 05:51
== END 2019-12-02 23:20 | disposition left against medical advice (07) ==
LOC: ER 19:59
DX: R09.81 Nasal congestion (principal); R05 Cough; R50.9 Fever, unspecified; F41.9 Anxiety disorder, unspecified; J44.9 Chronic obstructive pulmonary disease, unspecified; G89.29 Other chronic pain; F17.210 Nicotine dependence, cigarettes, uncomplicated; Z91.013 Allergy to seafood; Z88.8 Allergy status to other drugs, medicaments and biological substances
CPT/HCPCS: 71046; 99284

== ENCOUNTER 2020-05-04 15:08 | Emergency (ER) | payer MEDICARE, MEDICAID ==
[~2020-05-04] VITALS: Ht 190.5 cm; Wt 75.0 kg
[~2020-05-04 15:08] MED LIST changes: +SENN-182 PO; -SENN-80 PO
--- NOTE | 2020-05-04 16:07 | PHYS DOC ---
Past Medical History Past Medical History: Anxiety, Asthma, Bronchitis, COPD Additional Past Medical Histor: chronic knee pain, chronic back pain,HEP C Past Surgical History: No Surgical History Additional Past Surgical Histo: HERNIA REPAIR, HEAD INJURY UNKNOWN TYPE OR REPAIR Smoking Status: Current Every Day Smoker Alcohol Use: None Drug Use: Marijuana Social History Narrative: "I don't smoke weed but it may be in my system because I'm around it." General Adult EDM: Chief Complaint: TOE PROBLEM HPI: HPI: Patient is a 64 year old male patient who presents with left toe pain for the last 2 to 3 months. Patient reports he has had some discomfort in his toes for the last several months, has been continuing. He states he had seen his primary care and was referred to a pie cutter to have the nails removed 2 weeks ago, however he did not have a ride so he did not go to his appointment. States that he just trimmed his nails at that time. States he has some some discomfort in his toes in his right foot as well. Denies any trauma. States he is ambulatory, has not taken any medications for it. Reports he had just been at [facility] 4 days ago for difficulty breathing, had a negative covid test, and was told he has a cold, which she reports he is feeling a lot better now Review of Systems: Review of Systems: Constitutional: Denies fever or chills. [] Respiratory: Denies cough or shortness of breath. [] Cardiovascular: Denies chest pain or edema. [] Musculoskeletal: Denies back pain or joint pain. [] Integument: Denies rash. States discomfort to his left great and second toe [] Neurologic: Denies headache, focal weakness or sensory changes. [] Heart Score: Risk Factors: Risk Factors: DM, Current or recent (<one month) smoker, HTN, HLP, family history of CAD, obesity. Risk Scores: Score 0 - 3: 2.5% MACE over next 6 weeks - Discharge Home Score 4 - 6: 20.3% MACE over next 6 weeks - Admit for Clinical Observation Score 7 - 10: 72.7% MACE over next 6 weeks - Early Invasive Strategies Allergies: Allergies: Allergies Coded Allergies Type Severity Reaction Last Updated Verified Fish Containing Products Allergy Intermediate 08/11/14 Yes iodine Allergy Intermediate 08/11/14 Yes Physical Exam: PE: Constitutional: Well developed, well nourished, no acute distress, non-toxic appearance. [] HENT: Normocephalic, atraumatic, bilateral external ears normal, oropharynx moist, no oral exudates, nose normal. [] Eyes: PERRLA, EOMI, conjunctiva normal, no discharge. [] Extremities: No tenderness, no cyanosis, no clubbing, ROM intact, no edema. Left great toe and second digit with large amount of nail discoloration and growth. No apparent fungus another third or fourth digit. Small amount of fungus noted under fifth digit. No lesions, no erythematous, no tenderness. Nail appears to be ingrowing into toe causing discomfort. Capillary fill brisk [] Neurologic: Alert and oriented X 3, normal motor function, normal sensory function, no focal deficits noted. [] Psychologic: Affect normal, judgement normal, mood normal. [] Current Patient Data: Vital Signs: Vital Signs Date Time Temp Pulse Resp B/P (MAP) Pulse Ox O2 Delivery O2 Flow Rate FiO2 05/04/20 15:18 98.4 80 16 98 Room Air 98.4 EKG: EKG: [] Radiology/Procedures: Radiology/Procedures: [] Course & Med Decision Making: Course & Med Decision Making Pertinent Labs and Imaging studies reviewed. (See chart for details) [] Dragon Disclaimer: Dragon Disclaimer: This electronic medical record was generated, in whole or in part, using a voice recognition dictation system. Departure Departure Impression: Primary Impression: Onychomycosis Disposition: 01 HOME, SELF-CARE Condition: GOOD Referrals: RYANN KEYES MD (PCP) Additional Instructions: Follow up with your primary care to get another appointment with your pie cutter to have your nails removed. A toenail that is infected by a fungus usually turns white or yellow. As the fungus spreads, the nail turns a darker color and gets thicker, and its edges start to turn ragged and crumble. A bad infection can cause toe pain, and the nail may pull away from the toe. Toenails that are exposed to moisture and warmth a lot are more likely to get infected by a fungus. This can happen from wearing sweaty shoes often and from walking barefoot on shower floors. It is hard to treat toenail fungus, and the infection can return after it has cleared up. But medicines can sometimes get rid of toenail fungus for good. If the infection is very bad, or if it causes a lot of pain, you may need to have the nail removed. Follow-up care is a figueroa part of your treatment and safety. Be sure to make and go to all appointments, and call your doctor if you are having problems. It's also a good idea to know your test results and keep a list of the medicines you take. How can you care for yourself at home? Take your medicines exactly as prescribed. Call your doctor if you have any problems with your medicine. You will get more details on the specific medicines your doctor prescribes. If your doctor gave you a cream or liquid to put on your toenail, use it exactly as directed. Wash your feet often, and wash your hands after touching your feet. Keep your toenails clean and dry. Dry your feet completely after you bathe and before you put on shoes and socks. Keep your toenails trimmed. Change socks often. Wear dry socks that absorb moisture. Do not go barefoot in public places. Use a spray or powder that fights fungus on your feet and in your shoes. Do not pick at the skin around your nails. Do not use nail zimbabwean or fake nails on your toenails. Justicifation of Admission Dx: Justifications for Admission: Justification of Admission Dx: N/A CORNEL LUNA APRN May 04, 2020 16:07
== END 2020-05-04 16:08 | disposition home or self-care (01) ==
LOC: ER 15:08
DX: B35.1 Tinea unguium (principal); J44.9 Chronic obstructive pulmonary disease, unspecified; G89.29 Other chronic pain; F17.200 Nicotine dependence, unspecified, uncomplicated; Z91.013 Allergy to seafood; Z88.8 Allergy status to other drugs, medicaments and biological substances
CPT/HCPCS: 99281

== ENCOUNTER 2020-08-11 22:11 | Emergency (ER) | payer MEDICARE, MEDICAID ==
[~2020-08-11] VITALS: Ht 190.5 cm; Wt 78.0 kg
--- NOTE | 2020-08-11 22:39 | ED.ADGEN ---
Past Medical History Past Medical History: Anxiety, Asthma, Bronchitis, COPD Additional Past Medical Histor: chronic knee pain, chronic back pain,HEP C Past Surgical History: No Surgical History Additional Past Surgical Histo: HERNIA REPAIR, HEAD INJURY UNKNOWN TYPE OR REPAIR Smoking Status: Current Every Day Smoker Alcohol Use: None Drug Use: Marijuana General Adult EDM: Chief Complaint: MULTIPLE COMPLAINTS HPI: HPI: Patient is a 64 year old male coming in for substernal chest pain, cough and headache that has been going on for a month. Patient says he had called [facility] to ask a question about taking some medications and was told to go to the emergency department because his "chest might be closing up". Patient has a history of COPD and has switched from smoking cigarettes to cigars. Patient inhales the cigars and drinks 2 smoking like cigarettes. Denies any fevers. Has a history of anxiety has had recent panic attacks. Also complaining of years of constipation Review of Systems: Review of Systems: Constitutional: Denies fever or chills. [] Eyes: Denies change in visual acuity. [] HENT: Denies nasal congestion or sore throat. [] Respiratory: Cough Cardiovascular: Substernal chest pain denies lower extreme edema GI: Denies abdominal pain, nausea, vomiting, bloody stools or diarrhea. [] Constipation : Denies dysuria. [] Musculoskeletal: Denies back pain or joint pain. [] Integument: Denies rash. [] Neurologic: Denies headache, focal weakness or sensory changes. [] Endocrine: Denies polyuria or polydipsia. [] Lymphatic: Denies swollen glands. [] Psychiatric: Denies depression or anxiety. [] Current Medications: Current Medications Medications (Trade) Dose Ordered Sig/Lavon Start Time Stop Time Status Last Admin Dose Admin Prednisone (Prednisone) 50 mg 1X ONCE 08/12/20 00:00 08/12/20 00:01 UNV Allergies: Allergies: Allergies Coded Allergies Type Severity Reaction Last Updated Verified Fish Containing Products Allergy Intermediate 08/11/14 Yes iodine Allergy Intermediate 08/11/14 Yes Physical Exam: PE: Constitutional: Well developed, well nourished, no acute distress, non-toxic appearance. [] HENT: Normocephalic, atraumatic, bilateral external ears normal, oropharynx moist, no oral exudates, nose normal. [] Eyes: PERRLA, EOMI, conjunctiva normal, no discharge. [] Neck: Normal range of motion, no tenderness, supple, no stridor. [] Cardiovascular:Heart rate regular rhythm, no murmur [] Lungs & Thorax: Bilateral breath sounds clear to auscultation [] Abdomen: Bowel sounds normal, soft, no tenderness, no masses, no pulsatile masses. [] Skin: Warm, dry, no erythema, no rash. [] Back: No tenderness, no CVA tenderness. [] Extremities: No tenderness, no cyanosis, no clubbing, ROM intact, no edema. [] Neurologic: Alert and oriented X 3, normal motor function, normal sensory fu nction, no focal deficits noted. [] Psychologic: Affect normal, judgement normal, mood normal. [] Current Patient Data: Labs: Laboratory Tests Test 08/11/20 22:43 08/11/20 22:50 Sodium Level 137 mmol/L (136-145) Potassium Level 4.0 mmol/L (3.5-5.1) Chloride Level 103 mmol/L (98-107) Carbon Dioxide Level 24 mmol/L (21-32) Anion Gap 10 (6-14) Blood Urea Nitrogen 22 mg/dL (8-26) Creatinine 1.4 mg/dL (0.7-1.3) H Estimated GFR (Cockcroft-Gault) 61.7 BUN/Creatinine Ratio 16 (6-20) Glucose Level 102 mg/dL (70-99) H Calcium Level 8.7 mg/dL (8.5-10.1) Total Bilirubin 0.3 mg/dL (0.2-1.0) Aspartate Amino Transferase (AST) 22 U/L (15-37) Alanine Aminotransferase (ALT) 17 U/L (16-63) Alkaline Phosphatase 54 U/L (46-116) Troponin I Quantitative < 0.017 ng/mL (0.000-0.055) Total Protein 7.1 g/dL (6.4-8.2) Albumin 3.6 g/dL (3.4-5.0) Albumin/Globulin Ratio 1.0 (1.0-1.7) White Blood Count 4.1 x10^3/uL (4.0-11.0) Red Blood Count 4.13 x10^6/uL (4.30-5.70) L Hemoglobin 12.2 g/dL (13.0-17.5) L Hematocrit 35.9 % (39.0-53.0) L Mean Corpuscular Volume 87 fL (79-100) Mean Corpuscular Hemoglobin 30 pg (25-35) Mean Corpuscular Hemoglobin Concent 34 g/dL (31-37) Red Cell Distribution Width 15.0 % (11.5-14.5) H Platelet Count 210 x10^3/uL (140-400) Neutrophils (%) (Auto) 47 % (31-73) Lymphocytes (%) (Auto) 41 % (24-48) Monocytes (%) (Auto) 12 % (0-9) H Eosinophils (%) (Auto) 0 % (0-3) Basophils (%) (Auto) 0 % (0-3) Neutrophils # (Auto) 1.9 x10^3/uL (1.8-7.7) Lymphocytes # (Auto) 1.7 x10^3/uL (1.0-4.8) Monocytes # (Auto) 0.5 x10^3/uL (0.0-1.1) Eosinophils # (Auto) 0.0 x10^3/uL (0.0-0.7) Basophils # (Auto) 0.0 x10^3/uL (0.0-0.2) Laboratory Tests 08/11/20 22:50 Laboratory Tests 08/11/20 22:43 Vital Signs: Vital Signs Date Time Temp Pulse Resp B/P (MAP) Pulse Ox O2 Delivery O2 Flow Rate FiO2 08/11/20 22:15 98.0 68 18 135/79 (97) 99 Room Air 98.0 EKG: EKG: Normal sinus rhythm, normal axis, no ectopy, normal intervals, no ST elevation or depression [] Heart Score: Risk Factors: Risk Factors: DM, Current or recent (<one month) smoker, HTN, HLP, family history of CAD, obesity. Risk Scores: Score 0 - 3: 2.5% MACE over next 6 weeks - Discharge Home Score 4 - 6: 20.3% MACE over next 6 weeks - Admit for Clinical Observation Score 7 - 10: 72.7% MACE over next 6 weeks - Early Invasive Strategies Radiology/Procedures: Radiology/Procedures: PROCEDURE: CHEST PA & LATERAL INDICATION: Reason: chest pain / Spl. Instructions: / History: COMPARISON: December 02, 2019 FINDINGS: 2 view of chest obtained. Cardiac silhouette is unremarkable. Hyperexpanded lungs with coarsening of the interstitial markings. IMPRESSION: * Hyperexpanded lungs which can be seen with emphysema. No definite focal airspace consolidation. [] Course & Med Decision Making: Course & Med Decision Making Pertinent Labs and Imaging studies reviewed. (See chart for details) [] Dragon Disclaimer: Dragon Disclaimer: This electronic medical record was generated, in whole or in part, using a voice recognition dictation system. Departure Departure Impression: Primary Impression: COPD exacerbation Disposition: 01 DC HOME SELF CARE/HOMELESS Condition: STABLE Referrals: RYANN KEYES MD (PCP) Patient Instructions: Chronic Obstructive Pulmonary Disease, [id number] Scripts Prednisone (PREDNISONE) 50 Mg Tablet 1 TAB PO DAILY for 4 Days, #4 TAB Prov: DARRIN BRITO MD 08/11/20 DARRIN BRITO MD Aug 11, 2020 22:39
[2020-08-11 23:11] LABS: CALCIUM 8.7 mg/dL (8.5-10.1); CREATININE 1.4 mg/dL (0.7-1.3); GFR 61.7
[2020-08-11 23:12] LABS: ALBUMIN 3.6 g/dL (3.4-5.0); TOTAL BILIRUBIN 0.3 mg/dL (0.2-1.0); TOTAL PROTEIN 7.1 g/dL (6.4-8.2)
[2020-08-11 23:24] LABS: BASO % 0 % (0-3); EOS % 0 % (0-3); HEMATOCRIT 35.9 % (39.0-53.0); HEMOGLOBIN 12.2 g/dL (13.0-17.5); LYMPH # 1.7 x10^3/uL (1.0-4.8); LYMPH % 41 % (24-48); MEAN CORPUSCULAR HEMOGLOBIN 30 pg (25-35); MEAN CORPUSCULAR HGB CONC 34 g/dL (31-37); MEAN CORPUSCULAR VOLUME 87 fL (79-100); MONO # 0.5 x10^3/uL (0.0-1.1); MONO % 12 % (0-9); NEUT # 1.9 x10^3/uL (1.8-7.7); NEUT % 47 % (31-73); PLATELET COUNT 210 x10^3/uL (140-400); RED BLOOD COUNT 4.13 x10^6/uL (4.30-5.70); WHITE BLOOD COUNT 4.1 x10^3/uL (4.0-11.0)
--- NOTE | 2020-08-11 23:32 | RAD ---
INDICATION: Reason: chest pain / Spl. Instructions: / History: COMPARISON: December 02, 2019 FINDINGS: 2 view of chest obtained. Cardiac silhouette is unremarkable. Hyperexpanded lungs with coarsening of the interstitial markings. IMPRESSION: * Hyperexpanded lungs which can be seen with emphysema. No definite focal airspace consolidation. Electronically signed by: Casey Devine MD (08/11/2020 11:29 PM) [id number]
[2020-08-11] MEDS ORDERED: PRED50TA PO (23:59)
[2020-08-12] VITALS: BP 122/72
[2020-08-12] MEDS ORDERED: predniSONE 10 MG TABLET PO ONE (00:15)
--- NOTE | 2020-08-12 04:57 | EKG ---
[facility] [address] [place] [address] Test Date: 2020-08-11 Test Time: 22:32:53 Pat Name: DEBRA VANCE Department: Room: Gender: M Licensed Aircraft Maintenance Engineer: : 1955 Requested By: DARRIN BRITO Order Number: [id number] Reading MD: Measurements Intervals [place] Rate: 60 P: 71 [place]: 210 QRS: 38 QRSD: 80 T: 55 QT: 388 QTc: 388 Interpretive Statements SINUS RHYTHM QRS(T) CONTOUR ABNORMALITY CONSIDER ANTEROSEPTAL MYOCARDIAL DAMAGE POSSIBLY ABNORMAL ECG RI6.01 No previous ECG available for comparison
== END 2020-08-12 00:42 | disposition home or self-care (01) ==
LOC: ER 22:11
DX: J44.1 Chronic obstructive pulmonary disease with (acute) exacerbation (principal); R07.89 Other chest pain; R05 Cough; R51.9 Headache, unspecified; F41.9 Anxiety disorder, unspecified; G89.29 Other chronic pain; F17.200 Nicotine dependence, unspecified, uncomplicated; F12.90 Cannabis use, unspecified, uncomplicated; Z98.890 Other specified postprocedural states; Z91.013 Allergy to seafood; Z91.040 Latex allergy status
CPT/HCPCS: 36415; 71046; 80053; 84484; 85025; 93005; 99285; J7512

== ENCOUNTER 2020-11-28 12:51 | Emergency (ER) | payer MEDICARE, MEDICAID ==
[~2020-11-28] VITALS: Ht 190.5 cm; Wt 79.5 kg
[~2020-11-28 12:51] MED LIST changes: +PRED50TA PO
[2020-11-28 14:40] VITALS: BP 121/73
== END 2020-11-28 16:32 | disposition left against medical advice (07) ==
LOC: ER 12:51
DX: M54.9 Dorsalgia, unspecified (principal); Z53.21 Procedure and treatment not carried out due to patient leaving prior to being seen by health care provider

== ENCOUNTER 2021-12-10 17:23 | Emergency (ER) | payer MEDICARE, MEDICAID ==
[~2021-12-10] VITALS: Ht 190.5 cm; Wt 81.2 kg
[~2021-12-10 17:23] MED LIST changes: +CYCL10TA19 PO; -CYCL10TA2 PO
[2021-12-10] MEDS ORDERED: MORPHINE SULFATE 2 MG/ML INJ. IV/SQ PRN (18:00)
[2021-12-10] MEDS ORDERED: NITROGLYCERIN SUBLINGUAL 0.4 MG BOTTLE OF 25. SL PRN (18:00)
[2021-12-10] MEDS ORDERED: ASPIRIN 325 MG TABLET PO ONE (18:00)
[2021-12-10 18:08] LABS: BASO % 1 % (0-3); EOS % 0 % (0-3); HEMATOCRIT 37.7 % (39.0-53.0); HEMOGLOBIN 12.5 g/dL (13.0-17.5); LYMPH # 1.5 x10^3/uL (1.0-4.8); LYMPH % 30 % (24-48); MEAN CORPUSCULAR HEMOGLOBIN 29 pg (25-35); MEAN CORPUSCULAR HGB CONC 33 g/dL (31-37); MEAN CORPUSCULAR VOLUME 86 fL (79-100); MONO # 0.5 x10^3/uL (0.0-1.1); MONO % 9 % (0-9); NEUT % 60 % (31-73); PLATELET COUNT 240 x10^3/uL (140-400); RED BLOOD COUNT 4.37 x10^6/uL (4.30-5.70); WHITE BLOOD COUNT 4.9 x10^3/uL (4.0-11.0)
[2021-12-10 18:21] LABS: CALCIUM 8.6 mg/dL (8.5-10.1); CREATININE 1.2 mg/dL (0.7-1.3); GFR 73.3; POTASSIUM 4.5 mmol/L (3.5-5.1)
--- NOTE | 2021-12-10 18:22 | RAD ---
XR CHEST 1V Clinical Indication: Reason: chest pain / Comparison: Two-view chest August 11, 2020. Findings: The cardiomediastinal silhouette is normal. Lungs are hyperexpanded. Lungs are clear. There is no pne umothorax. No pleural effusion is appreciated. No acute bone abnormality. IMPRESSION: No acute cardiopulmonary process. Electronically signed by: Noe Kiser MD (12/10/2021 6:20 PM) [facility]
[2021-12-10 18:23] LABS: ALBUMIN 3.7 g/dL (3.4-5.0); MAGNESIUM 2.1 mg/dL (1.8-2.4); TOTAL BILIRUBIN 0.3 mg/dL (0.2-1.0); TOTAL PROTEIN 7.5 g/dL (6.4-8.2)
[2021-12-10 18:41] VITALS: BP 137/90
--- NOTE | 2021-12-10 20:38 | PHYS DOC ---
Past Medical History Past Medical History: Anxiety, Asthma, Bronchitis, COPD, High Cholesterol Additional Past Medical Histor: LUNG CA Past Surgical History: No Surgical History Additional Past Surgical Histo: HERNIA REPAIR, Smoking Status: Former Smoker Alcohol Use: None Drug Use: Marijuana General Adult EDM: Chief Complaint: CHEST PAIN HPI: HPI: Patient is a 66 year old male with history of COPD currently not a smoker, asthma, anxiety, high cholesterol, who presents the ED today complaining of 8 out of 10 substernal intermittent chest pain, symptoms began 1 hour prior to coming to the ED. Patient is also complaining of dizziness and shortness of breath that began an hour prior to coming to the ED. Patient states [birth year] his [birth year] on November 16 2021 he received a phone call from [facility] and was informed he has lung cancer. He states they did further testing on him including a PET scan, he states today he was at [facility] getting his anxiety medicine when he received another phone call stating he has another cancer lesion on his neck. Patient states he immediately became anxious, his chest started hurting, he became dizzy and short of air. Patient is very sad, he states he was told he needed surgery to remove part of his lung or do radiation treatment. He states he was told radiation treatment for his lung can cer is not effective surgery is the only effective treatment. He states he had been very unhappy with this news neither does he want surgery. Patient states the thought of all this medical problems going on exacerbates his pain and talking to people relieves the pain. He states he does not have a very good support system at home either. Patient denies any suicidal or homicidal ideations. Patient is very tearful. Review of Systems: Review of Systems: Constitutional: Denies fever or chills. [] Eyes: Denies change in visual acuity. [] HENT: Denies nasal congestion or sore throat. [] Respiratory: Reports shortness of breath. [] Cardiovascular: Reports chest pain GI: Denies abdominal pain, nausea, vomiting, bloody stools or diarrhea. [] : Denies dysuria. [] Musculoskeletal: Denies back pain or joint pain. [] Integument: Denies rash. [] Neurologic: Reports dizziness. Denies headache, focal weakness or sensory changes. [] Endocrine: Denies polyuria or polydipsia. [] Lymphatic: Denies swollen glands. [] Psychiatric: Reports anxiety Heart Score: C/O Chest Pain: N/A Risk Factors: Risk Factors: DM, Current or recent (<one month) smoker, HTN, HLP, family history of CAD, obesity. Risk Scores: Score 0 - 3: 2.5% MACE over next 6 weeks - Discharge Home Score 4 - 6: 20.3% MACE over next 6 weeks - Admit for Clinical Observation Score 7 - 10: 72.7% MACE over next 6 weeks - Early Invasive Strategies Current Medications: Current Medications Medications (Trade) Dose Ordered Sig/Lavon Start Time Stop Time Status Last Admin Dose Admin Aspirin (Elif Aspirin) 325 mg 1X ONCE 12/10/21 18:00 12/10/21 18:01 DC 12/10/21 18:00 325 MG Morphine Sulfate (Morphine Sulfate) 2 mg PRN Q15MIN PRN 12/10/21 18:00 12/10/21 20:08 DC 12/10/21 18:05 2 MG Nitroglycerin (Nitrostat) 0.4 mg PRN Q5MIN PRN 12/10/21 18:00 12/10/21 20:08 DC Allergies: Allergies: Allergies Coded Allergies Type Severity Reaction Last Updated Verified Fish Containing Products Allergy Intermediate 12/10/21 Yes iodine Allergy Intermediate 12/10/21 Yes Physical Exam: PE: Constitutional: Well developed, well nourished, no acute distress, non-toxic appearance. [] HENT: Normocephalic, atraumatic, bilateral external ears normal, oropharynx moist, no oral exudates, nose normal. [] Eyes: PERRLA, EOMI, conjunctiva normal, no discharge. [] Neck: Normal range of motion, no tenderness, supple, no stridor. [] Cardiovascular:Heart rate regular rhythm, no murmur [] Lungs & Thorax: Bilateral breath sounds clear to auscultation [] Abdomen: Bowel sounds normal, soft, no tenderness, no masses, no pulsatile masses. [] Skin: Warm, dry, no erythema, no rash. [] Back: No tenderness, no CVA tenderness. [] Extremities: No tenderness, no cyanosis, no clubbing, ROM intact, no edema. [] Neurologic: Alert and oriented X 3, normal motor function, normal sensory function, no focal deficits noted. [] Psychologic: Flat affect, depressed mood, tearful Current Patient Data: Labs: Laboratory Tests Test 12/10/21 17:51 12/10/21 17:55 D-Dimer (Amanda) 0.35 ug/mlFEU (0.00-0.50) White Blood Count 4.9 x10^3/uL (4.0-11.0) Red Blood Count 4.37 x10^6/uL (4.30-5.70) Hemoglobin 12.5 g/dL (13.0-17.5) L Hematocrit 37.7 % (39.0-53.0) L Mean Corpuscular Volume 86 fL (79-100) Mean Corpuscular Hemoglobin 29 pg (25-35) Mean Corpuscular Hemoglobin Concent 33 g/dL (31-37) Red Cell Distribution Width 15.0 % (11.5-14.5) H Platelet Count 240 x10^3/uL (140-400) Neutrophils (%) (Auto) 60 % (31-73) Lymphocytes (%) (Auto) 30 % (24-48) Monocytes (%) (Auto) 9 % (0-9) Eosinophils (%) (Auto) 0 % (0-3) Basophils (%) (Auto) 1 % (0-3) Neutrophils # (Auto) 3.0 x10^3/uL (1.8-7.7) Lymphocytes # (Auto) 1.5 x10^3/uL (1.0-4.8) Monocytes # (Auto) 0.5 x10^3/uL (0.0-1.1) Eosinophils # (Auto) 0.0 x10^3/uL (0.0-0.7) Basophils # (Auto) 0.0 x10^3/uL (0.0-0.2) Sodium Level 143 mmol/L (136-145) Potassium Level 4.5 mmol/L (3.5-5.1) Chloride Level 105 mmol/L (98-107) Carbon Dioxide Level 27 mmol/L (21-32) Anion Gap 11 (6-14) Blood Urea Nitrogen 20 mg/dL (8-26) Creatinine 1.2 mg/dL (0.7-1.3) Estimated GFR (Cockcroft-Gault) 73.3 BUN/Creatinine Ratio 17 (6-20) Glucose Level 90 mg/dL (70-99) Calcium Level 8.6 mg/dL (8.5-10.1) Magnesium Level 2.1 mg/dL (1.8-2.4) Total Bilirubin 0.3 mg/dL (0.2-1.0) Aspartate Amino Transferase (AST) 16 U/L (15-37) Alanine Aminotransferase (ALT) 19 U/L (16-63) Alkaline Phosphatase 56 U/L (46-116) Troponin I High Sensitivity 7 ng/L (4-75) VH-Amq-L-Type Natriuretic Peptide 19 pg/mL (0-124) Total Protein 7.5 g/dL (6.4-8.2) Albumin 3.7 g/dL (3.4-5.0) Albumin/Globulin Ratio 1.0 (1.0-1.7) Laboratory Tests 12/10/21 17:55 Laboratory Tests 12/10/21 17:55 Vital Signs: Vital Signs Date Time Temp Pulse Resp B/P (MAP) Pulse Ox O2 Delivery O2 Flow Rate FiO2 12/10/21 19:45 56 16 100 Room Air 12/10/21 18:41 137/90 (106) EKG: EK interpreted by Dr. Delong sinus rhythm heart rate 63 no STEMI [] Radiology/Procedures: Radiology/Procedures: []PROCEDURE: PORTABLE CHEST 1V XR CHEST 1V Clinical Indication: Reason: chest pain / Comparison: Two-view chest August 11, 2020. Findings: The cardiomediastinal silhouette is normal. Lungs are hyperexpanded. Lungs are clear. There is no pneumothorax. No pleural effusion is appreciated. No acute bone abnormality. IMPRESSION: No acute cardiopulmonary process. Electronically signed by: Noe Jenkins MD (12/10/2021 6:20 PM) [facility] DICTATED and SIGNED BY: NOE JENKINS MD DATE: 12/10/21 [id number] 0 Course & Med Decision Making: Course & Med Decision Making Pertinent Labs and Imaging studies reviewed. (See chart for details) This is a 66-year-old male patient presented to the ED today with complaints of chest pain that began an hour prior to coming to the ED after he was told that he has another cancer lesion on his neck from a PET scan that was done a couple days ago. Patient was diagnosed with lung cancer on November 16, 2021. Patient appears very depressed though denies any suicidal homicidal ideations. He has been tearful in the ED. EKG is negative, chest x-ray is negative, CBC with a normal WBC, Hgb 12.5, HCT 37.7 , CMP, troponin-no acute findings. D-dimer 0.35 Patient left AGAINST MEDICAL ADVICE, i was informed by nursing staff he wanted t o leave, i was not able to see him prior to his departure. The last time I saw the patient he was alert oriented x4 and able to make his own decisions. Annelise Disclaimer: Annelise Disclaimer: This electronic medical record was generated, in whole or in part, using a voice recognition dictation system. Departure Departure Impression: Primary Impression: Chest pain Qualified Codes: R07.9 - Chest pain, unspecified Disposition: 07 LEFT AGAINST MEDICAL ADVICE Condition: STABLE SHEILACHAPIS Stevens PRESS CLIPPER Dec 10, 2021 20:38
--- NOTE | 2021-12-11 05:16 | EKG ---
[facility] [address] [place] [address] Test Date: 2021-12-10 Test Time: 17:28:35 Pat Name: DEBRA VANCE Department: Room: Gender: M Box Chipper: : 1955 Requested By: CHAPIS SOSA Order Number: [id number] Reading MD: Narciso Stuart MD Measurements Intervals [place] Rate: 70 P: 99 IA: 176 QRS: 119 QRSD: 78 T: 122 QT: 366 QTc: 398 Interpretive Statements SINUS RHYTHM CONSIDER LIMB LEAD MISPLACEMENT Electronically Signed On 12-11-2021 10:59:19 DATA CONVERSION DEVELOPER by Narciso Stuart MD
--- NOTE | 2021-12-11 05:16 | EKG ---
[facility] [address] [place] [address] Test Date: 2021-12-10 Test Time: 17:30:16 Pat Name: DEBRA VANCE Department: Room: Gender: M Cheese Packer: : 1955 Requested By: CHAPIS SOSA Order Number: [id number] Reading MD: Narciso Stuart MD Measurements Intervals [place] Rate: 63 P: 118 PA: 176 QRS: 119 QRSD: 76 T: 128 QT: 370 QTc: 381 Interpretive Statements SINUS RHYTHM CONSIDER LIMB LEAD MISPLACEMENT Electronically Signed On 12-11-2021 10:59:06 SET UP AND CHARGER by Narciso Stuart MD
== END 2021-12-10 20:08 | disposition left against medical advice (07) ==
LOC: ER 17:23
DX: R07.89 Other chest pain (principal); R42 Dizziness and giddiness; R06.02 Shortness of breath; J44.9 Chronic obstructive pulmonary disease, unspecified; E78.00 Pure hypercholesterolemia, unspecified; Z87.891 Personal history of nicotine dependence; Z91.013 Allergy to seafood; Z88.8 Allergy status to other drugs, medicaments and biological substances
CPT/HCPCS: 36415; 71045; 80053; 83735; 83880; 84484; 85025; 85379; 93005; 96374; 99285; J2270

== ENCOUNTER 2022-02-09 09:36 | Emergency (ER) | payer MEDICARE, MEDICAID ==
[~2022-02-09] VITALS: Ht 190.5 cm; Wt 84.7 kg
[2022-02-09 09:40] VITALS: BP 117/79
--- NOTE | 2022-02-09 10:11 | PHYS DOC ---
Past Medical History Past Medical History: Anxiety, Asthma, Bronchitis, Cancer, COPD, High Cho lesterol Additional Past Medical Histor: LUNG CA Past Surgical History: Other Additional Past Surgical Histo: HERNIA REPAIR, neck mass removal Smoking Status: Former Smoker Alcohol Use: None Drug Use: Marijuana General Adult EDM: Chief Complaint: SHOULDER INJURY HPI: HPI: Patient is a 66-year-old male who presents today with left shoulder pain. Patient states that pain has been ongoing for 3 to 4 days, patient states he has a past medical history of a lung nodule and recently in the last couple of weeks had a mass removed from his neck. Patient denies any injury to the left shoulder. Patient states that he has been taking Tylenol for the pain and has not been helpful. Review of Systems: Review of Systems: Constitutional: Denies fever or chills. [] Eyes: Denies change in visual acuity. [] HENT: Denies nasal congestion or sore throat. [] Respiratory: Denies cough or shortness of breath. [] Cardiovascular: Denies chest pain or edema. [] GI: Denies abdominal pain, nausea, vomiting, bloody stools or diarrhea. [] : Denies dysuria. [] Musculoskeletal: Left shoulder pain Integument: Denies rash. [] Neurologic: Denies headache, focal weakness or sensory changes. [] Endocrine: Denies polyuria or polydipsia. [] Lymphatic: Denies swollen glands. [] Psychiatric: Denies depression or anxiety. [] Heart Score: C/O Chest Pain: No Risk Factors: Risk Factors: DM, Current or recent (<one month) smoker, HTN, HLP, family history of CAD, obesity. Risk Scores: Score 0 - 3: 2.5% MACE over next 6 weeks - Discharge Home Score 4 - 6: 20.3% MACE over next 6 weeks - Admit for Clinical Observation Score 7 - 10: 72.7% MACE over next 6 weeks - Early Invasive Strategies Allergies: Allergies: Allergies Coded Allergies Type Severity Reaction Last Updated Verified Fish Containing Products Allergy Intermediate 12/10/21 Yes iodine Allergy Intermediate 12/10/21 Yes Physical Exam: PE: Constitutional: Well developed, well nourished, no acute distress, non-toxic appearance. [] HENT: Normocephalic, atraumatic, bilateral external ears normal, oropharynx moist, no oral exudates, nose normal. [] Eyes: PERRLA, EOMI, conjunctiva normal, no discharge. [] Neck: Normal range of motion, no tenderness, supple, no stridor. [] Cardiovascular:Heart rate regular rhythm, no murmur [] Lungs & Thorax: Bilateral breath sounds clear to auscultation [] Abdomen: Bowel sounds normal, soft, no tenderness, no masses, no pulsatile masses. [] Skin: Warm, dry, no erythema, no rash. [] Back: No tenderness, no CVA tenderness. [] Extremities: Left shoulder tenderness located along the deltoid area along the bicep tendon insertion site, no swelling redness or erythema noted, patient has good range of motion, radial pulse 2+, neurovascular intact distal to the pain] Neurologic: Alert and oriented X 3, normal motor function, normal sensory function, no focal deficits noted. [] Psychologic: Affect normal, judgement normal, mood normal. [] Current Patient Data: Vital Signs: Vital Signs Date Time Temp Pulse Resp B/P (MAP) Pulse Ox O2 Delivery O2 Flow Rate FiO2 02/09/22 09:40 98.5 65 18 117/79 (92) 98 Room Air 98.5 EKG: EKG: [] Radiology/Procedures: Radiology/Procedures: REASON: shoulder pain PROCEDURE: SHOULDER 2+V LEFT EXAMINATION: Left shoulder radiograph. VIEWS: The COMPARISON: None INDICATION:66 years, Male, shoulder pain. FINDINGS: No acute fracture, dislocation or subluxation. No bone erosion or periosteal reaction. No soft tissue swelling. Visualized lung is unremarkable. IMPRESSION: No acute osseous process. Electronically signed by: Orville Martin MD (02/09/2022 10:21 AM) [facility] [] Course & Med Decision Making: Course & Med Decision Making Pertinent Labs and Imaging studies reviewed. (See chart for details) 1040 I reviewed radiological results with patient I did inform there was no acute findings today on his x-ray, I informed him that he may need further evaluation and management of this shoulder pain which may include an MRI on an outpatient basis, he should follow-up with his primary care physician at the [facility] internal medicine clinic for further evaluation of this pain. Patient is instructed to take Motrin which he says he has a prescription for at home I also informed him that's Lidoderm patches [id number] would help with localized pain relief, he states he has those at home as well, I did inform him ice 20 minutes on 3-4 times daily may also help with localized pain relief. Patient verbalized understanding of this and agreeable with the plan of care. Donnyon Disclaimer: Dragon Disclaimer: This electronic medical record was generated, in whole or in part, using a voice recognition dictation system. Departure Departure Impression: Primary Impression: Shoulder pain Qualified Codes: M25.512 - Pain in left shoulder Disposition: HOME / SELF CARE / HOMELESS Condition: STABLE Referrals: UNKNOWN PCP NAME (PCP) LOAN ST MD Patient Instructions: Shoulder Pain Additional Instructions: Take Motrin as previously prescribed that you have at home Use Lidoderm patches as directed as previously prescribed Ice 20 minutes on 3-4 times daily as needed for localized pain relief and swelling Follow-up with your primary care physician this week for further evaluation and management of the shoulder pain. You may also follow-up with Dr. St who is our orthopedic doctor on-call for further evaluation and management as well. SHIRA GOEL HOISTING ENGINEER Feb 09, 2022 10:11
[2022-02-09] MEDS ORDERED: IBUPROFEN 200 MG TABLET. PO ONE (10:15)
--- NOTE | 2022-02-09 10:24 | RAD ---
EXAMINATION: Left shoulder radiograph. VIEWS: The COMPARISON: None INDICATION:66 years, Male, shoulder pain. FINDINGS: No acute fracture, dislocation or subluxation. No bone erosion or periosteal reaction. No soft tissue swelling. Visualized lung is unremarkable. IMPRESSION: No acute osseous process. Electronically signed by: Orville Martin MD (02/09/2022 10:21 AM) [facility]
== END 2022-02-09 10:53 | disposition home or self-care (01) ==
LOC: ER 09:36
DX: M25.512 Pain in left shoulder (principal); J44.9 Chronic obstructive pulmonary disease, unspecified; E78.00 Pure hypercholesterolemia, unspecified; Z87.891 Personal history of nicotine dependence; Z91.013 Allergy to seafood; Z88.8 Allergy status to other drugs, medicaments and biological substances
CPT/HCPCS: 73030; 99283

== ENCOUNTER 2022-02-23 11:20 | Emergency (ER) | payer MEDICARE, MEDICAID ==
[~2022-02-23] VITALS: Ht 190.5 cm; Wt 90.0 kg
[2022-02-23 11:35] VITALS: BP 122/80
[2022-02-23] MEDS ORDERED: TRAM-48 PO (12:24)
--- NOTE | 2022-02-23 12:24 | PHYS DOC ---
Past Medical History Past Medical History: Anxiety, Asthma, Bronchitis, Cancer, COPD, High Cho lesterol Additional Past Medical Histor: LUNG CANCER Past Surgical History: Cancer Surgery Additional Past Surgical Histo: HERNIA REPAIR, neck mass removal Smoking Status: Former Smoker Alcohol Use: None Drug Use: Marijuana General Adult EDM: Chief Complaint: SHOUDLER HPI: HPI: Patient is a 66-year-old male that presents today with left shoulder pain. Patient was seen approximately 1 week ago by myself and had an evaluation for the shoulder pain, he was instructed to follow-up with his primary care physician and/or Dr. Barbour who is the orthopedic doctor on-call for further evaluation and management of the shoulder pain. Patient states he saw his primary care physician this week he said that he told him about his shoulder pain but there was no other evaluation or management of this, he presents today to the emergency department for increased pain he is taking Tylenol and/or ibuprofen for pain and is not helping. Review of Systems: Review of Systems: Constitutional: Denies fever or chills. [] Eyes: Denies change in visual acuity. [] HENT: Denies nasal congestion or sore throat. [] Respiratory: Denies cough or shortness of breath. [] Cardiovascular: Denies chest pain or edema. [] GI: Denies abdominal pain, nausea, vomiting, bloody stools or diarrhea. [] : Denies dysuria. [] Musculoskeletal: Left shoulder pain Integument: Denies rash. [] Neurologic: Denies headache, focal weakness or sensory changes. [] Endocrine: Denies polyuria or polydipsia. [] Lymphatic: Denies swollen glands. [] Psychiatric: Denies depression or anxiety. [] Heart Score: C/O Chest Pain: No Risk Factors: Risk Factors: DM, Current or recent (<one month) smoker, HTN, HLP, family history of CAD, obesity. Risk Scores: Score 0 - 3: 2.5% MACE over next 6 weeks - Discharge Home Score 4 - 6: 20.3% MACE over next 6 weeks - Admit for Clinical Observation Score 7 - 10: 72.7% MACE over next 6 weeks - Early Invasive Strategies Allergies: Allergies: Allergies Coded Allergies Type Severity Reaction Last Updated Verified Fish Containing Products Allergy Intermediate 12/10/21 Yes iodine Allergy Intermediate 12/10/21 Yes Physical Exam: PE: Constitutional: Well developed, well nourished, no acute distress, non-toxic appearance. [] HENT: Normocephalic, atraumatic, bilateral external ears normal, oropharynx moist, no oral exudates, nose normal. [] Eyes: PERRLA, EOMI, conjunctiva normal, no discharge. [] Neck: Normal range of motion, no tenderness, supple, no stridor. [] Cardiovascular:Heart rate regular rhythm, no murmur [] Lungs & Thorax: Bilateral breath sounds clear to auscultation [] Abdomen: Bowel sounds normal, soft, no tenderness, no masses, no pulsatile masses. [] Skin: Warm, dry, no erythema, no rash. [] Back: No tenderness, no CVA tenderness. [] Extremities: Left shoulder tenderness along the deltoid and bicep insertion site, patient has full range of motion of his left arm, radial pulse is 2+ sensory is intact distal to the pain, with cap refill being less than 2 seconds Neurologic: Alert and oriented X 3, normal motor function, normal sensory function, no focal deficits noted. [] Psychologic: Affect normal, judgement normal, mood normal. [] Current Patient Data: Vital Signs: Vital Signs Date Time Temp Pulse Resp B/P (MAP) Pulse Ox O2 Delivery O2 Flow Rate FiO2 02/23/22 11:35 97.5 73 20 122/80 (94) 98 97.5 EKG: EKG: [] Radiology/Procedures: Radiology/Procedures: [] Course & Med Decision Making: Course & Med Decision Making Pertinent Labs and Imaging studies reviewed. (See chart for details) Patient was evaluated and is in no acute distress he has full range of motion of his left arm, he will be given a couple of tablets of tramadol to help with pain, he is also instructed to take some Voltaren cream as labeled directed to help with localized pain relief. Patient was again instructed to follow-up with orthopedic doctor for further evaluation and management of this he may need an MRI for further management of this pain. Patient verbalizes understanding of this and agreeable with the plan of care. Annelise Disclaimer: Annelise Disclaimer: This electronic medical record was generated, in whole or in part, using a voice recognition dictation system. Departure Departure Impression: Primary Impression: Shoulder pain Qualified Codes: M25.512 - Pain in left shoulder Disposition: 01 HOME / SELF CARE / HOMELESS Condition: STABLE Referrals: UNKNOWN PCP NAME (PCP) ESTRADA ARZOLA II, MD Patient Instructions: Shoulder Pain Additional Instructions: Ultram take 1 tablet every 6 hours as needed for pain use with caution may cause drowsiness Continue with her Tylenol and ibuprofen as directed by your primary care physician Continue all your other medications as previously prescribed by your primary care physician Follow-up with Dr. Bethea who is the orthopedic doctor on-call for further evaluation and management of your left shoulder pain. Scripts Tramadol Hcl (ULTRAM) 50 Mg Tablet 1 TAB PO PRN Q6HRS PRN for pain MDD 4 Tablet(s), #10 TAB 0 Refills Prov: SHIRA GOEL APRN 02/23/22 SHIRA GOEL LAYOUT FORMER February 23, 2022 12:24
== END 2022-02-23 12:29 | disposition home or self-care (01) ==
LOC: ER 11:20
DX: M25.512 Pain in left shoulder (principal); J44.1 Chronic obstructive pulmonary disease with (acute) exacerbation; E78.00 Pure hypercholesterolemia, unspecified; Z87.891 Personal history of nicotine dependence; Z88.8 Allergy status to other drugs, medicaments and biological substances
CPT/HCPCS: 99283